=== PATIENT | male | born 1960 | race Caucasian/White ===

== ENCOUNTER 2017-04-07 19:42 | Inpatient (IN) | payer OTHER ==
[~2017-04-07] VITALS: Ht 177.8 cm; Wt 121.3 kg
[~2017-04-07 19:42] MED LIST: ALB2.5NEB INH; ALB2.5NEB NEB; ALBU83IN INH; ASPI1TAB PO; B-1210009 PO; BISO5TAB2 PO; BISO5TAB5 PO; BREO1INH INH; BUSP10TA PO; CIPR500T3 PO; CITA20TA4 PO; CYCL10TA PO; FOLI1TAB2 PO; GABA-282 PO; LASI20TA PO; LISI-538 PO; METF500T PO; METR500T10 PO; ONDA4TAB6 PO; OXAZ10CA PO; PERC5TAB6 PO; POTA10TA16 PO; PRIL40CA PO; SYMB80INH INH; THIA100T PO; Thiamine Hcl PO; ZEBE1TAB PO; ZOFR20TA PO; [UNRECOGNIZED DRUG - CODE] IM
[2017-04-07] MEDS ORDERED: PROPOFOL 1,000 MG/100 ML VIAL As Ordered ONE (21:08)
[2017-04-07] MEDS ORDERED: MIDAZOLAM INJ 2 MG/2 ML VIAL (J2250) As Ordered ONE (21:09)
[2017-04-07] MEDS ORDERED: BISACODYL 10 MG SUPP PR PRN (21:15)
[2017-04-07] MEDS ORDERED: ONDANSETRON 4MG/2ML VIAL (J2405) IV PRN (21:15)
[2017-04-07] MEDS ORDERED: PROPOFOL 1,000 MG in APPROPRIATE DILUENT 1 EA IV SCH (21:17)
[2017-04-07] MEDS: ALBUTEROL SULFATE 2.5 MG/0.5 ML INH NEB SOLN NEB PRN (21:39)
[2017-04-07] MEDS: MIDAZOLAM INJ 2 MG/2 ML VIAL (J2250) IV PRN ×4 (21:47→23:26)
[2017-04-07] MEDS: CHLORHEXIDINE GLUCONATE 0.12 % 15ML UDC (PERIDEX ORAL RINSE) MT SCH (21:47)
[2017-04-07] MEDS: PANTOPRAZOLE 40MG INJ (PROTONIX) (C9113) IV SCH (21:47)
[2017-04-07] MEDS: HEPARIN SOD (PORCINE) 5000 UNITS/ML VIAL SC SCH (21:48)
[2017-04-07 21:52] LABS: ABG BASE EXCESS 8.7 (-2.0-2.0); ABG HCO3 37.1 MEQ/L (22.0-26.0); ABG PARTIAL PRESSURE CO2 68.2 mmHg (35.0-45.0); ABG PARTIAL PRESSURE O2 73.3 mmHg (75.0-100.0); ABG STANDARD HCO3 32.4 MEQ/L (22.0-26.0); ABG TOTAL CO2 39.2 MEQ/L (22.0-29.0); ABG pH (ARTERIAL) 7.353 UNITS (7.350-7.450)
[2017-04-07 21:57] LABS: DIFF SLIDE NUMBER 163; MEAN CORPUSCULAR HEMOGLOBIN 33.7 pg (27.0-33.0); MEAN CORPUSCULAR VOLUME 88.9 fl (80.0-96.0); PLATELET COUNT, AUTOMATED 311 k/mm3 (150-450); RED CELL DISTRIBUTION WIDTH 13.4 % (11.5-14.5); WHITE BLOOD COUNT 15.6 K/mm3 (4.0-10.0)
[2017-04-07 21:58] LABS: INR 1.03
[2017-04-07 22:00] LABS: ANION GAP 10 MEQ/L (8-16); BLOOD UREA NITROGEN 3 MG/DL (7-18); CALCIUM LEVEL 7.2 MG/DL (8.5-10.1); CARBON DIOXIDE LEVEL 34 MEQ/L (21-32); CHLORIDE LEVEL 59 MEQ/L (98-107); GLOMERULAR FILTRATION RATE > 60.0 (>56); GLUCOSE, FASTING 78 MG/DL (70-105); POTASSIUM SERUM 3.2 MEQ/L (3.5-5.1)
[2017-04-07] MEDS ORDERED: MIDAZOLAM HCL 100 MG in D5W 80 ML IV SCH (22:00)
[2017-04-07] MEDS ORDERED: REFRIGERATOR IV KEYS XX PRN ×2 (22:00)
[2017-04-07 22:07] VITALS: O2SAT 90
[2017-04-07 22:09] LABS: SODIUM LEVEL 103 MEQ/L (136-145)
[2017-04-07] MEDS ORDERED: MULTIVITAMIN -ADULT INJECTION 10 ML, THIAMINE INJection 100 MG, FOLIC ACID 1 MG in NS 1... IV ONE (22:15)
[2017-04-07] MEDS: MIDAZOLAM HCL 100 MG in D5W 80 ML IV SCH (22:22)
[2017-04-07] MEDS: MAG SULF 1GM/100ML (MAG RUN) 1 GM in APPROPRIATE DILUENT 1 EA IV SCH ×2 (22:24→23:24)
[2017-04-07] MEDS ORDERED: GLUCOSE 4 GM CHEW TABLET PO PRN (22:30)
[2017-04-07] MEDS ORDERED: KCL 20MEQ in NS 1000ML 1,000 ML IV SCH (22:30)
[2017-04-07] MEDS ORDERED: GLUCAGON FOR INJ 1 MG VIAL (J1610) SC PRN (22:30)
[2017-04-07] MEDS ORDERED: POTASSIUM PHOSPHATE INJ 18 MMOL in D5W 250 ML IV ONE (22:30)
[2017-04-07] MEDS ORDERED: DEXTROSE 50% 50 ML SYRINGE IV PRN (22:30)
[2017-04-07 22:41] LABS: MEAN CORPUSCULAR HGB CONC 37.9 g/dl (32.0-36.5)
[2017-04-07 23:04] LABS: BANDS 1 % (< 11)
[2017-04-07 23:05] LABS: HYPERSEGMENTED POLYS 3+; TOXIC GRANULATION 1+
[2017-04-07] MEDS ORDERED: SING10TA32 PO (23:29)
[2017-04-07] MEDS ORDERED: FURO1TAB15 PO (23:29)
[2017-04-07] MEDS ORDERED: MAGN1TAB25 PO (23:29)
[2017-04-07] MEDS ORDERED: CART120C PO (23:29)
[2017-04-07] MEDS ORDERED: ZEBE1TAB PO (23:29)
[2017-04-07] MEDS ORDERED: CELE20TA PO (23:29)
[2017-04-07] MEDS ORDERED: AMAR1TAB5 PO (23:29)
[2017-04-07] MEDS ORDERED: OMEP40CA2 PO (23:29)
[2017-04-07] MEDS ORDERED: SODI1TAB6 PO (23:35)
[2017-04-07] MEDS ORDERED: BREO1INH INH (23:35)
[2017-04-07] MEDS ORDERED: POTA20EL PO (23:35)
[2017-04-07] MEDS ORDERED: METF1000 PO (23:35)
[2017-04-07] MEDS: IPRATROPIUM 0.5MG/ALBUTEROL 2.5MG INH SOL UD 3ML (DUONEB)(J7620) NEB SCH (23:40)
[2017-04-08] VITALS (15 sets, daily range): BP systolic 93–132; BP diastolic 45–60
[2017-04-08] MEDS: MIDAZOLAM INJ 2 MG/2 ML VIAL (J2250) IV PRN ×16 (00:10→21:58)
[2017-04-08] MEDS: OXAZEPAM 10 MG CAP PO SCH ×4 (00:31→17:14)
[2017-04-08] MEDS: MORPHINE 2 MG/ML 1ML SYRINGE IV PRN ×3 (00:38→07:34)
[2017-04-08] MEDS: MULTIVITAMIN -ADULT INJECTION 10 ML, THIAMINE INJection 100 MG, FOLIC ACID 1 MG in NS 1... IV SCH ×2 (02:04→21:06)
--- NOTE | 2017-04-08 02:26 | HPE ---
DATE OF ADMISSION: 04/07/2017 HISTORY OF PRESENT ILLNESS: I was contacted by [facility] for a direct transfer of this 56-year-old white male who has a past history of hyponatremia who was brought to the [facility] by ambulance for altered mental status after a fall. Per their intake, which I understand was taken from a neighbor and possibly his mother, he had not been compliant with his medications recently and he had been drinking heavily. He was described as having decreased level of consciousness. Apparently, according to the triage notes, his mother had seen him fall from a standing position. When he landed his neck was at an angle on the back of a chair and he had altered mental status and therefore she contacted emergency medical services (EMS). His speech was incoherent and he was combative at times. He could state his name upon arrival, would answer "no" if asked if he knew where he was. Because of his combativeness and mental status, he was eventually intubated. With intubation, they noted that he had clear secretions from his nose and mouth, but did not comment on any aspiration nor was there any comment on any type of emesis. His workup at that time of his presentation had shown several abnormalities the most striking of which was the sodium of 104 and a chloride of 59. Other abnormalities included a phosphorus of 2.0 and a magnesium of 1.0. He had initially been hypertensive, but was hypotensive following intubation at the time that they contacted me with a systolic in the 90s. He was on a Versed drip at 2 mg/h and a fentanyl drip at 100 mcg/h. I recommended discontinuance of the fentanyl drip and using as needed Versed and morphine if necessary. Propofol could not be considered as that requires anesthesia to administer it in that facility. I also had recommended that if a vasopressor was needed that Neeraj-Synephrine would be appropriate as he did not have central access. In addition hemodynamic stability, I also asked for an arterial blood gas prior to transfer. Upon arrival, he was intubated and initially mildly agitated when transferring to the bed, but this resolved with one dosage of 2 mg of Versed. The only other history that is available is that he had a similar admission at [facility] 03/19/2017, though his sodium at that time was 129. He had another admission to for hyponatremia 03/24/2016, and had an admission to [facility] 04/05/2016, for acute hyponatremia when interestingly his sodium was also 104 as it is today. He also had an admission in August of 2015 again for hyponatremia and encephalopathy with a presenting sodium of 107. He also was intubated during that admission. PAST MEDICAL HISTORY: 1. Hyponatremia. 2. Alcoholic cirrhosis with recurrent ascites. 3. Chronic obstructive pulmonary disease (COPD) per chart, do not know his specific lung mechanics. 4. Diabetes mellitus. 5. Hypertension. 6. Gastroesophageal reflux disease (GERD). 7. Morbid obesity. 8. Chronic heavy alcohol abuse. 9. History of tobacco usage. 10. Chronic hypomagnesemia. MEDICATIONS ON ADMISSION: Unknown as reports are he has not been compliant with medications. DISCHARGE MEDICATIONS: From [place] on 03/19/2017 were: - Amaryl 2 mg by mouth daily - bisoprolol 10 mg by mouth daily - Breo one puff daily - Cartia XT daily - Celexa 20 mg by mouth daily - Flexeril 10 mg by mouth twice a day - folic acid 1 mg by mouth daily - gabapentin 300 mg by mouth three times a day - lisinopril 10 mg by mouth daily - loratadine 10 mg by mouth daily - magnesium oxide 400 mg by mouth three times a day - montelukast 10 mg by mouth daily - Prilosec 40 mg by mouth daily - potassium chloride 20 mEq by mouth twice a day - Lasix 40 mg by mouth daily - BuSpar 10 mg by mouth twice a day - metformin 1000 mg by mouth twice a day - Bydureon once a week FAMILY HISTORY: Not pertinent to this admission. SOCIAL HISTORY: Unobtainable secondary to intubation. REVIEW OF SYSTEMS: Unobtainable secondary to intubation. What is known is included in the history of present illness (HPI). PHYSICAL EXAMINATION: GENERAL: Mr. Mir is lying in bed synchronous with the ventilator. He is sedated. VITAL SIGNS: Pulse 74, respiratory rate 16, SpO2 90% on an FiO2 of 0.4, blood pressure 95/45 with a mean arterial pressure (MAP) of 68, temperature 97.9. HEENT: Anicteric. Pupils 3 mm and reactive. Nares: Patent bilaterally, moist mucosa. Oropharynx: Endotracheal (ET) tube and OG tube in place, moist mucosa. NECK: Supple, without thyromegaly or masses. Trachea is midline. Unable to assess jugular venous distention (JVD) secondary to body habitus. LYMPHATICS: Without cervical or supraclavicular lymphadenopathy. CHEST: Normal shape. LUNGS: Symmetric excursion, good air entry, no wheeze, rhonchi or crackle on tidal excursion. Normal inspiratory to expiratory (I to E). No accessory muscle usage or retractions. CARDIOVASCULAR: Regular rate and rhythm with a normal S1, S2. No murmur, rub or gallop appreciated. ABDOMEN: Diminished, but present bowel sounds, soft, nondistended, no hepatosplenomegaly or masses appreciated in suboptimal examination secondary to body habitus. EXTREMITIES: Warm and well perfused, without clubbing or cyanosis, 3+ pitting pedal edema and 1-2+ pretibial edema bilaterally, palpable dorsalis pedis pulses bilaterally. LABORATORY DATA: Repeat labs obtained here upon arrival show a hemoglobin of 14.8, hematocrit 39, platelet count 311,000, white blood cell count 15,600, with a differential of 88% neutrophils, 1% bands, and 7% lymphocytes. Chemistry showed a sodium of 103, potassium 3.2, chloride 59, CO2 34, anion gap 10, BUN 3, creatinine 0.3, glucose 78, calcium 7.2, ionized calcium 3.7. INR 1.03. Urine osmolality 271. Serum osmolality is pending. Blood gas on assist control PRVC with a rate 16, tidal volume of 400, and FiO2 of 0.35 was 7.35/68/73 with a measured saturation of 93%. I reviewed his chest x-ray, which showed an enlarged cardiac silhouette and normal pulmonary vascular shadows. No acute infiltrates. Endotracheal tube in good position. Additional studies available from [facility] include a CRP of 49, troponin I of 0.01, BNP of 813, lactic acid of 2.6, lipase 19, acetaminophen less than 15 , salicylate less than 0.03, sedimentation rate 10, TSH 0.47, negative urine toxicology screen. I did not see an EtOH level on my purview of the labs. Report from CT of the brain without IV contrast did not show any acute abnormality except for opacification of the ethmoid and right maxillary sinuses. CT of the cervical spine showed no fracture or listhesis. I reviewed his chest CT scan, which did not show any acute pathology. It did have bibasilar dependent atelectasis. Endotracheal tube was in good position. I reviewed a repeat chest x-ray taken here to ensure the endotracheal tube was in good position after transportation. That showed enlarged cardiac silhouette. No acute infiltrates. Endotracheal tube was in good position. IMPRESSION: 1. Severe hyponatremia likely secondary to chronic alcoholism. 2. Mechanical ventilation secondary to decreased mental status, agitation. 3. Hypomagnesemia. 4. Hypokalemia. 5. Ethyl alcohol (EtOH) abuse, active at the time of admission. 6. History of alcoholic cirrhosis with recurrent ascites. 7. Chronic obstructive pulmonary disease (COPD) per chart. I do not know his spirometric values. 8. Possible obstructive sleep apnea (MARCOS) based on body habitus. 9. History of tobacco usage. RECOMMENDATIONS: 1. We will aim to improve his sodium level by at most 0.5 mEq/h. Therefore, we will follow NaK every 4 hours and adjust his intravenous (IV) fluids appropriately. 2. To slowly increase his sodium levels, he will be given IV normal saline starting at a rate of 100 mL/h and will adjust according to NaK to ensure appropriate correction. 3. We will replace his magnesium and phosphorus. 4. We will start him on Serax because of his alcoholism. 5. A banana bag because of his alcohol abuse. 6. Will check a serum ammonia level given the description of his activities prior to intubation, which may have been reflective of an encephalopathy of which hepatic causes would be a possible etiology. PROGNOSIS: Guarded. Critical care time: 3 hours not including procedure time. RINA
[2017-04-08 02:44] LABS: POTASSIUM SERUM 3.2 MEQ/L (3.5-5.1)
[2017-04-08] MEDS ORDERED: KCL 10MEQ IN STERILE WATER 100ML As Ordered ONE (03:06)
[2017-04-08] MEDS: IPRATROPIUM 0.5MG/ALBUTEROL 2.5MG INH SOL UD 3ML (DUONEB)(J7620) NEB SCH ×6 (03:25→23:53)
[2017-04-08] MEDS: KCL 10MEQ IN 100ML SWI (KRUN) 10 MEQ in APPROPRIATE DILUENT 1 EA IV SCH ×14 (04:12→12:32)
[2017-04-08] MEDS: HEPARIN SOD (PORCINE) 5000 UNITS/ML VIAL SC SCH ×3 (05:30→21:07)
[2017-04-08] MEDS: HumaLOG INSULIN (NovoLOG) PER UNIT SC SCH ×4 (05:37→17:30)
[2017-04-08 06:54] LABS: ALBUMIN 2.5 GM/DL (3.2-5.2); ALBUMIN/GLOBULIN RATIO 0.74 (1.00-1.93); ALKALINE PHOSPHATASE 98 U/L (45-117); ALT/SGPT 38 U/L (12-78); ANION GAP 11 MEQ/L (8-16); AST/SGOT 61 U/L (15-37); BILIRUBIN,TOTAL 0.8 MG/DL (0.2-1.0); BLOOD UREA NITROGEN 3 MG/DL (7-18); CARBON DIOXIDE LEVEL 33 MEQ/L (21-32); CHLORIDE LEVEL 62 MEQ/L (98-107); CREATININE FOR GFR 0.27 MG/DL (0.70-1.30); GLOMERULAR FILTRATION RATE > 60.0 (>56); GLUCOSE, FASTING 75 MG/DL (70-105); MAGNESIUM LEVEL 1.4 MG/DL (1.8-2.4); POTASSIUM SERUM 3.1 MEQ/L (3.5-5.1); SODIUM LEVEL 106 MEQ/L (136-145); TOTAL PROTEIN 5.9 GM/DL (6.4-8.2)
[2017-04-08 07:24] LABS: DIFF SLIDE NUMBER 71; MEAN CORPUSCULAR HEMOGLOBIN 34.3 pg (27.0-33.0); MEAN CORPUSCULAR VOLUME 89.8 fl (80.0-96.0); PLATELET COUNT, AUTOMATED 272 k/mm3 (150-450); WHITE BLOOD COUNT 9.4 K/mm3 (4.0-10.0)
[2017-04-08 08:06] LABS: MEAN CORPUSCULAR HGB CONC 37.4 g/dl (32.0-36.5)
[2017-04-08 08:09] LABS: HYPERSEGMENTED POLYS 3+
--- NOTE | 2017-04-08 08:20 | REP ---
Portable chest, 04/07/2017, 10:30 p.m., single AP view, patient sitting: Comparison is 09/26/2015. There is an endotracheal tube with the term the tip terminating satisfactorily just above the level of the aortic arch. There is a nasogastric tube terminates satisfactorily abdominal left upper quadrant. The right lung is clear. The left costophrenic angle is effaced. This could be artifact from portable positioning and represent a left pleural effusion. Cardiac size is enlarged. Signed by Eric Manning MD 04/08/2017 08:12 A
--- NOTE | 2017-04-08 08:26 | REP ---
Portable chest, the patient semi upright, 04/08/2017, 03:33 a.m.: Comparisons are 04/07 201709/26/2015. The left hemidiaphragm is obscured. This is nonspecific and could represent a left lower lobe infiltrate or pleural effusion or could be artifact from portable positioning. The remainder of the left lung is clear. The right lung is clear. Cardiac size is enlarged, unchanged. There is an endotracheal tube terminating satisfactorily above the level of the aortic arch. There is a nasogastric tube terminating satisfactorily abdominal left upper quadrant. Signed by Eric Manning MD 04/08/2017 08:18 A
[2017-04-08 08:31] LABS: CHOLESTEROL LEVEL 152 MG/DL (< 200); PHOSPHORUS LEVEL 2.1 MG/DL (2.5-4.9); TRIGLYCERIDES LEVEL 85 MG/DL (<150)
[2017-04-08] MEDS: CHLORHEXIDINE GLUCONATE 0.12 % 15ML UDC (PERIDEX ORAL RINSE) MT SCH ×2 (08:47→21:06)
[2017-04-08] MEDS: MAG SULF 1GM/100ML (MAG RUN) 1 GM in APPROPRIATE DILUENT 1 EA IV SCH ×2 (08:47→10:04)
[2017-04-08 09:29] LABS: ABG BASE EXCESS 8.2 (-2.0-2.0); ABG HCO3 35.5 MEQ/L (22.0-26.0); ABG PARTIAL PRESSURE O2 64.8 mmHg (75.0-100.0); ABG STANDARD HCO3 31.9 MEQ/L (22.0-26.0); ABG TOTAL CO2 37.4 MEQ/L (22.0-29.0); ABG pH (ARTERIAL) 7.383 UNITS (7.350-7.450)
[2017-04-08 10:35] LABS: POTASSIUM SERUM 3.1 MEQ/L (3.5-5.1)
[2017-04-08] MEDS ORDERED: POTASSIUM PHOSPHATE INJ 18 MMOL in D5W 250 ML IV ONE (13:00)
--- NOTE | 2017-04-08 14:22 | CCN ---
CRITICAL CARE NOTE: 04/08/2017 Mr. Mir remains critically ill with severe hyponatremia and the requirement for mechanical ventilation secondary to encephalopathy. He has had moments of agitation overnight, but has been relatively well controlled on versed drip and as needed versed and morphine. He has remained off vasopressors since transfer from [facility]. His sodium is correcting at approximately the rate of 0.5 mEq per hour. He has minimal secretions, but at times has upon turning his head, oral and nasal secretions that were clear and sticky. OBJECTIVE: GENERAL: Mr. Mir is sedated, intubated and synchronous with the ventilator. VITAL SIGNS: Temperature 98.7 with a T-max of 99.2, pulse 90, respiratory rate 16, blood pressure 126/57 with an mean arterial pressure (MAP) of 80, SpO2 89% on an FiO2 of 0.4. HEENT: Pupils 4 to 5 mm and reactive, anicteric. Nares: Right NG tube in place. Oropharynx: ET tube in place, moist mucosa. NECK: Supple, without thyromegaly, masses, trachea is midline. Lymphs: Without cervical or supraclavicular lymphadenopathy. CHEST: Symmetric excursion, fair air entry, coarse breath sounds bilaterally with an expiratory squeak on the right. Mildly prolonged expiratory phase. No significant crackles or rhonchi. No accessory muscle usage or retractions (briefly last evening he used abdominal muscles on exhalation. CARDIOVASCULAR: Regular rate and rhythm with a normal S1, S2, no murmur, rub or gallop appreciated. ABDOMEN: Positive bowel sounds. Soft, nondistended. No hepatosplenomegaly or masses appreciated and difficult examination secondary to body habitus. EXTREMITIES: Without clubbing or cyanosis, palpable pedal pulses bilaterally, 3 to 4+ pitting pedal edema bilaterally and 2+ pretibial edema bilaterally. LABORATORY DATA: CBC showed a hemoglobin of 13.6, hematocrit 35.5, platelet count of 272,000. White blood cell count 9400 with a differential 91% neutrophils, 3% lymphocytes, 5% monocytes. Chemistries from this morning showed a sodium of 106, potassium 3.1, chloride 62 , bicarbonate 33, anion gap 11, BUN 3, creatinine 0.3, glucose 75, calcium 7.0, phosphorous 2.1, magnesium 1.4, and a total bilirubin 0.8, AST 61, ALT 38, alkaline phosphatase 98, LDH 277, CK 617, total protein 5.9, albumin 2.5. Troponin I 0.1 initially with CK of 821 and a CK-MB relative index of 2.37. Subsequent values showed a troponin I of 0.08 with a CK of 457 and a relative CK-MB index of 2.4. Arterial blood gas on packed red blood cells was a tidal volume of 440, rate of 14, positive end-expiratory pressure (PEEP) of 7, FiO2 2.4, was 7.38/61/65 with a measured saturation of 92% and a base excess of 8.2. Today's Intake and output (I and O) are not fully recorded. What is accurate is his urine output, which is 1450 and gastric output of 500, giving his urine output of 0.45 mL/kg/hour. I reviewed his chest x-ray as well as the report from earlier today. That x-ray showed probably enlarged cardiac silhouette. ET tube and NG tube in satisfactory condition. No acute infiltrates. The left hemidiaphragm is obscured. IMPRESSION: 1. Severe hyponatremia, felt secondary to chronic alcoholism. 2. Mechanical ventilation secondary to encephalopathy. 3. Hypomagnesemia. 4. Hypokalemia. 5. ETOH abuse, active at the time of admission. 6. Chronic obstructive pulmonary disease (COPD) per chart. 7. Possible obstructive sleep apnea based on body habitus. 8. History of alcoholic cirrhosis with recurrent ascites. 9. Deep venous thrombosis (DVT) and stress ulcer prophylaxis in place. 10. Nutrition: Currently nothing by mouth (npo). RECOMMENDATIONS: 1. Continue to slowly correct his sodium at a maximum rate of 0.5 mEq per hour. 2. We will continue to replace electrolytes as needed. 3. Given his respiratory findings, will add nebulized budesonide. 4. Will continue bronchodilators as written (DuoNeb every 4 hours and albuterol every 2 hours as needed). 5. Hopefully, will continue to do well. If his mean arterial pressure remains reasonable, would consider changing him to propofol later today. This would allow rapid assessment of mental status for possible extubation tomorrow. 6. Another consideration tomorrow would be adding Precedex to see if that would help with his mental status and would allow extubation. Critical care time: 45 minutes, not including procedure time. MTDD
[2017-04-08 15:24] LABS: POTASSIUM SERUM 4.6 MEQ/L (3.5-5.1)
[2017-04-08 18:29] LABS: POTASSIUM SERUM 3.6 MEQ/L (3.5-5.1)
[2017-04-08] MEDS ORDERED: FORMOTEROL FUMARATE 20 MCG/2 ML INHALATION SOLUTION (PERFOROMIST) INH SCH (20:00)
[2017-04-08] MEDS: BUDESONIDE 0.5 MG/2 ML INHALATION SUSPENSION INH SCH (20:51)
[2017-04-08] MEDS: PANTOPRAZOLE 40MG INJ (PROTONIX) (C9113) IV SCH (21:06)
[2017-04-08] MEDS: MIDAZOLAM HCL 100 MG in D5W 80 ML IV SCH (22:13)
[2017-04-08 22:30] LABS: POTASSIUM SERUM 3.5 MEQ/L (3.5-5.1)
[2017-04-08] MEDS ORDERED: D5W 1000 ML IV ONE (23:15)
[2017-04-08] MEDS ORDERED: DESMOPRESSIN 4 MCG/ML INJ VIAL/AMP (J2597) SQ ONE (23:15)
[2017-04-08] MEDS ORDERED: D5W 1,000 ML IV SCH (23:15)
[2017-04-09] VITALS (20 sets, daily range): BP systolic 97–169; BP diastolic 51–91
[2017-04-09] MEDS ORDERED: KCL 40MEQ in NS 1000ML 1,000 ML IV SCH
[2017-04-09] MEDS: HumaLOG INSULIN (NovoLOG) PER UNIT SC SCH ×5 (00:03→23:53)
[2017-04-09] MEDS: MIDAZOLAM INJ 2 MG/2 ML VIAL (J2250) IV PRN ×5 (00:09→08:18)
[2017-04-09] MEDS ORDERED: D5W 1000 ML IV ONE (00:45)
[2017-04-09 02:35] LABS: POTASSIUM SERUM 3.3 MEQ/L (3.5-5.1)
[2017-04-09] MEDS: IPRATROPIUM 0.5MG/ALBUTEROL 2.5MG INH SOL UD 3ML (DUONEB)(J7620) NEB SCH ×6 (03:09→23:04)
[2017-04-09] MEDS ORDERED: D5W 1,000 ML IV ONE (03:15)
[2017-04-09] MEDS ORDERED: POTASSIUM CHLORIDE 10% LIQ 20 MEQ/15 ML UDC PO ONE (03:15)
[2017-04-09] MEDS: KCL 10MEQ IN 100ML SWI (KRUN) 10 MEQ in APPROPRIATE DILUENT 1 EA IV SCH ×4 (03:27→04:32)
[2017-04-09] MEDS: FOLIC ACID IV SCH ×2 (04:32→15:07)
[2017-04-09] MEDS: MULTIVITAMIN ADULT IV SCH ×2 (04:32→15:07)
[2017-04-09] MEDS: [UNRECOGNIZED DRUG - OTHER] IV SCH ×2 (04:32→15:07)
[2017-04-09] MEDS: THIAMINE IV SCH ×2 (04:32→15:07)
[2017-04-09] MEDS: HEPARIN SOD (PORCINE) 5000 UNITS/ML VIAL SC SCH ×4 (06:00→21:58)
[2017-04-09] MEDS: OXAZEPAM 10 MG CAP PO SCH ×5 (06:12→23:53)
[2017-04-09 06:24] LABS: BASO % 0.1 % (0.0-1.0); EOS % 0.6 % (0.0-3.0); LARGE UNSTAINED CELL # 0.1 K/mm3 (0.0-0.4); LARGE UNSTAINED CELL % 0.9 % (0.0-4.0); LYMPH # 0.6 K/mm3 (1.5-4.5); LYMPH % 7.2 % (24.0-44.0); MEAN CORPUSCULAR HEMOGLOBIN 34.7 pg (27.0-33.0); MEAN CORPUSCULAR VOLUME 93.3 fl (80.0-96.0); MONO # 0.3 K/mm3 (0.0-0.8); MONO % 4.4 % (0.0-5.0); NEUTROPHILS # 6.8 K/mm3 (1.8-7.7); NEUTROPHILS % 86.8 % (36.0-66.0); PLATELET COUNT, AUTOMATED 261 k/mm3 (150-450); WHITE BLOOD COUNT 7.8 K/mm3 (4.0-10.0)
[2017-04-09 06:28] LABS: MEAN CORPUSCULAR HGB CONC 36.6 g/dl (32.0-36.5)
[2017-04-09 06:41] LABS: ALBUMIN 2.3 GM/DL (3.2-5.2); ALBUMIN/GLOBULIN RATIO 0.68 (1.00-1.93); ALKALINE PHOSPHATASE 89 U/L (45-117); ALT/SGPT 31 U/L (12-78); ANION GAP 6 MEQ/L (8-16); AST/SGOT 31 U/L (15-37); BILIRUBIN,TOTAL 0.6 MG/DL (0.2-1.0); BLOOD UREA NITROGEN 2 MG/DL (7-18); CALCIUM LEVEL 7.9 MG/DL (8.5-10.1); CARBON DIOXIDE LEVEL 38 MEQ/L (21-32); CHLORIDE LEVEL 74 MEQ/L (98-107); CHOLESTEROL LEVEL 161 MG/DL (< 200); GLOMERULAR FILTRATION RATE > 60.0 (>56); GLUCOSE, FASTING 167 MG/DL (70-105); MAGNESIUM LEVEL 1.4 MG/DL (1.8-2.4); PHOSPHORUS LEVEL 1.8 MG/DL (2.5-4.9); POTASSIUM SERUM 3.9 MEQ/L (3.5-5.1); SODIUM LEVEL 118 MEQ/L (136-145); TOTAL PROTEIN 5.7 GM/DL (6.4-8.2); TRIGLYCERIDES LEVEL 85 MG/DL (<150)
[2017-04-09] MEDS ORDERED: MAG SULF 1GM/100ML (MAG RUN) 1 GM in APPROPRIATE DILUENT 1 EA IV ONE ×2 (07:00→17:30)
[2017-04-09] MEDS: BUDESONIDE 0.5 MG/2 ML INHALATION SUSPENSION INH SCH ×2 (07:14→19:29)
--- NOTE | 2017-04-09 07:42 | REP ---
Clinical: Respiratory distress. Comparison: 04/08/2017. Findings: Endotracheal tube approximately 4 cm above the jeremy. Nasogastric tube courses below left hemidiaphragm. Mediastinum and cardiac silhouette are stable and grossly within normal limits for portable technique. Perihilar, right middle lobe, and left lower lobe/retrocardiac consolidations are again suggested. Small left effusion cannot be excluded. No pneumothorax. Skeletal structures intact. Impression: Perihilar and predominantly left lower lobe opacities similar to prior examination. Small left effusion cannot be excluded. Signed by Pedro Orozco MD 04/09/2017 07:34 A
[2017-04-09] MEDS ORDERED: POTASSIUM PHOSPHATE INJ 30 MMOL in D5W 500 ML IV ONE (08:00)
[2017-04-09] MEDS: CHLORHEXIDINE GLUCONATE 0.12 % 15ML UDC (PERIDEX ORAL RINSE) MT SCH (08:18)
[2017-04-09 10:08] LABS: CORTISOL BASELINE 12.6 UG/DL (4.3-22.4)
[2017-04-09 10:53] LABS: POTASSIUM SERUM 3.8 MEQ/L (3.5-5.1)
[2017-04-09 11:51] LABS: ABG BASE EXCESS 11.9 (-2.0-2.0); ABG HCO3 38.6 MEQ/L (22.0-26.0); ABG PARTIAL PRESSURE CO2 58.5 mmHg (35.0-45.0); ABG STANDARD HCO3 35.7 MEQ/L (22.0-26.0); ABG TOTAL CO2 40.4 MEQ/L (22.0-29.0); ABG pH (ARTERIAL) 7.437 UNITS (7.350-7.450)
--- NOTE | 2017-04-09 14:07 | CCN ---
DATE: 04/09/2017 NOTE: Mr. Mir remains critically ill with acute respiratory failure secondary to encephalopathy and severe hyponatremia. He had been maintained on normal saline and was correcting at an appropriate rate until early yesterday evening when his sodium suddenly increased and he started having significant urine output. The changes were consistent with syndrome of inappropriate secretion of antidiuretic hormone (SIADH). Nephrology was consulted, who took over management of his sodium difficulty. Since his initial jump in sodium to 118 from his level of 109, he has not had any further increases. His mental status has improved and he was following commands on his weaning trial today. Overnight, he did have a nose bleed (we do not know history of his nasogastric placement and whether there was any trauma). That resolved without any intervention. He is currently awake and alert, indicating no pain. He indicates that he is getting enough air. He is anxious for extubation. OBJECTIVE: VITAL SIGNS: Temperature 99.1 with a maximum temperature (t-max) of 99.4, pulse 101, respiratory rate 18, blood pressure 154/72 with a mean arterial pressure of 99, SpO2 94% on an FiO2 of 0.4. HEENT: Anicteric. Pupils are 3 mm and reactive. NECK: Oropharynx: ET tube in place. Naris: Nasogastric tube in place in right nostril. NECK: Supple. Without thyromegaly or masses. Trachea is midline. LYMPHATICS: Without cervical or supraclavicular lymphadenopathy. CHEST: Normal shape. LUNGS: Symmetric excursion, good air entry. No wheeze, rhonchi or crackles on tidal excursion. Mildly prolonged but improved expiratory phase. No accessory muscle use or retractions. CARDIOVASCULAR: Tachycardic. Regular rhythm with a normal S1, S2. No murmur, rub or gallop appreciated. ABDOMEN: Positive bowel sounds. Soft, nondistended, nontender. He indicates no discomfort. EXTREMITIES: Warm and well perfused. 2+ pedal edema bilaterally with 1+ pretibial edema bilaterally. Palpable pedal pulses bilaterally. LABORATORY DATA: This morning electrolytes show sodium 118, potassium 3.9, chloride 74, bicarbonate 38, anion gap 6, BUN 2, creatinine 0.4, glucose 167, calcium 7.9, phosphorous 1.8, magnesium 1.4, total bilirubin 0.6, AST 31, ALT 31 , alkaline phosphatase 89, LDH 174, CK 251, total protein 5.7, albumin 2.3. Yesterday, input and output unfortunately cannot thoroughly be assessed as no input was done from midnight until 7:00 a.m. His output is accurate, I believe, and it shows 5375 mL. I reviewed his chest x-ray, as well as the report from earlier today. The x-ray showed normal-appearing cardiac silhouette, pulmonary vascular shadows. There is scattered areas of atelectasis, loss of left hemidiaphragm. No consolidative regions. No significant change compared to chest x-ray from yesterday. ET tube is in good position. IMPRESSION: 1. Mechanical ventilation secondary to encephalopathy. 2. 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 3. Hypomagnesemia. 4. Hypokalemia. 5. ETOH abuse, active at the time of admission. 6. Chronic obstructive pulmonary disease (COPD) per chart. 7. Possible obstructive sleep apnea. 8. History of alcoholic cirrhosis with recurrent ascites. 9. Deep vein thrombosis (DVT) and stress ulcer prophylaxis in place. 10. Nutrition, currently nothing by mouth. RECOMMENDATIONS: 1. I appreciate nephrology's input and management of his severe hyponatremia. 2. As he is following commands and appears oriented, we will proceed with evaluation for possible extubation. 3. If he is not extubatable, we will need to coordinate some type of nasogastric tube feedings, taking into consideration the amount of sodium that would be included. ADDENDUM Mr. Mir underwent a pressure support trial with a PEEP of 5, pressure support of 5 on an FiO2 of 0.4. He did very well on that trial with rapid shallow breathing index of 44. As he is a CO2 retainer, an arterial blood gas was obtained, which was 7.44/59/79 with a measured saturation of 96% and a base excess of 11.9. He was therefore extubated. The goal will be an SpO2 of 88 to 92%. It is thought that he possibly had obstructive sleep apnea, so he will need to be observed closely in the post extubation time period and may require transient intervention with either CPAP or noninvasive mechanical ventilation. Critical care time: 35 minutes, not including procedures. [facility]
[2017-04-09] MEDS: ALBUTEROL SULFATE 2.5 MG/0.5 ML INH NEB SOLN NEB PRN (14:17)
[2017-04-09 15:24] LABS: ANION GAP 8 MEQ/L (8-16); BLOOD UREA NITROGEN 2 MG/DL (7-18); CALCIUM LEVEL 8.2 MG/DL (8.5-10.1); CARBON DIOXIDE LEVEL 37 MEQ/L (21-32); CHLORIDE LEVEL 73 MEQ/L (98-107); CREATININE FOR GFR 0.35 MG/DL (0.70-1.30); GLOMERULAR FILTRATION RATE > 60.0 (>56); GLUCOSE, FASTING 122 MG/DL (70-105); SODIUM LEVEL 118 MEQ/L (136-145)
[2017-04-09 16:30] LABS: MAGNESIUM LEVEL 1.6 MG/DL (1.8-2.4); PHOSPHORUS LEVEL 3.1 MG/DL (2.5-4.9)
[2017-04-09] MEDS: LABETALOL HCL 100 MG/20 ML VIAL IV SCH ×2 (18:25→23:53)
[2017-04-09 18:43] LABS: MAGNESIUM LEVEL 1.6 MG/DL (1.8-2.4); PHOSPHORUS LEVEL 3.2 MG/DL (2.5-4.9)
[2017-04-09 18:43] LABS: ANION GAP 10 MEQ/L (8-16); BLOOD UREA NITROGEN 1 MG/DL (7-18); CALCIUM LEVEL 8.2 MG/DL (8.5-10.1); CARBON DIOXIDE LEVEL 37 MEQ/L (21-32); CHLORIDE LEVEL 73 MEQ/L (98-107); CREATININE FOR GFR 0.36 MG/DL (0.70-1.30); GLOMERULAR FILTRATION RATE > 60.0 (>56); GLUCOSE, FASTING 116 MG/DL (70-105); POTASSIUM SERUM 3.9 MEQ/L (3.5-5.1); SODIUM LEVEL 120 MEQ/L (136-145)
--- NOTE | 2017-04-09 19:17 | CR ---
DATE OF CONSULTATION: 04/09/2017 REQUESTING PHYSICIAN: Dr. Ordoñez CONSULTING PHYSICIAN: Dr. Jean REASON FOR CONSULTATION: Management of severe hyponatremia and multiple electrolyte abnormalities. CHIEF COMPLAINT: The patient was transferred from [facility] for critical care management of this intubated patient with severe hyponatremia. Note, history was obtained from the medical team and from the patient's chart. The patient is unable to provide any history because he is intubated at this time. HISTORY OF THE PRESENT ILLNESS: Mr. Juvenal Mir is a 57-year-old male with a past medical history of hyponatremia in the past as well. He has a history of chronic alcohol abuse. He was initially admitted to [facility] with decreased level of consciousness, confusion, multiple falls and incoherent speech. As reported in the chart, the patient was drinking heavily before going to [facility] Emergency Room (ER). The patient was intubated over there. He was found to have a sodium of 104 and chloride of 59 on arrival in the emergency room. The patient was transferred to [facility] for a higher level of care. When the patient arrived at [facility], he was intubated and sedated with Versed. His initial labs showed that he had a sodium of 103. The patient was started on IV normal saline. His sodium on the morning of 04/08/2017 was 106. After that, the patient started making almost 350 mL of urine an hour. He rapidly corrected to sodium of 118 within 12 hours. Nephrology service was contacted at that time for further management of severe hyponatremia. I discussed the patient over the phone with the critical care attending last night. The patient's IV normal saline was stopped. He was given a dose of DDAVP 3 mcg subcutaneously last night after he had already corrected about 12 mEq in 12 hours. The patient was also given multiple IV D5W boluses to reverse the overcorrection. I was subsequently called for each lab value every 4 hours. His sodium has been stable at 118 since last night. His urine osmolality increased from 45 to 272 this morning after use of DDAVP. The patient continues to be on IV D5W at this time. His urine output also dropped this morning to 75 mL an hour. The patient is still intubated and sedated at this time. PAST MEDICAL HISTORY: History of hyponatremia in the past as well. History of alcoholic cirrhosis with recurrent ascites. Chronic obstructive pulmonary disease (COPD). Diabetes mellitus type 2. Hypertension. Gastroesophageal reflux disease. Morbid obesity. Chronic hypomagnesemia. PAST SURGICAL HISTORY: Unknown past surgical history. ALLERGIES: No known drug allergies. FAMILY HISTORY: Not available at this time in this intubated patient. SOCIAL HISTORY: I was unable to obtain the social history because the patient is intubated, but as reported in the documentation, the patient has a history of alcohol abuse in the past. REVIEW OF SYSTEMS: I was unable to do any reliable review of systems in this patient who is intubated and sedated. MEDICATIONS ON TRANSFER FROM [facility]: - Amaryl 2 mg by mouth daily - bisoprolol 10 mg by mouth daily - Breo Ellipta one puff daily - Cartia XT daily - Celexa 20 mg by mouth daily - Flexeril 10 mg by mouth twice a day - folic acid 1 mg by mouth daily - gabapentin 300 mg by mouth three times a day - lisinopril 10 mg by mouth daily - loratadine 10 mg by mouth daily - magnesium oxide 400 mg by mouth three times a day - montelukast 10 mg by mouth daily - Prilosec 40 mg by mouth daily - potassium chloride 20 mEq by mouth twice a day - Lasix 40 mg by mouth daily - BuSpar 10 mg by mouth twice a day - metformin 1 gram by mouth twice a day - Bydureon once a week PHYSICAL EXAMINATION: GENERAL: The patient is intubatede, sedated, otherwise arousable, on the vent at this time. VITAL SIGNS: Temperature is 97.7 degrees Fahrenheit, blood pressure is 166/91, pulse is 88, respiratory rate of 20, saturating 94% on the vent, 40% FiO2. HEAD AND NECK EXAM: Pupils equally round and reactive to light. The patient is arousable on painful stimuli. He is intubated. He has an nasogastric tube which is attached to suctioning at this time. Neck is supple. There is no jugular venous distention (JVD). CARDIOVASCULAR: S1, S2. Regular rate. No murmur, rub or gallop. RESPIRATORY: Chest is clear to auscultation bilaterally. He has transmitted breath sounds because of the vent; otherwise there are no rales or rhonchi. ABDOMEN: Soft, obese. Positive bowel sounds. Nontender, no ascites, no organomegaly. EXTREMITIES: No clubbing or cyanosis. Pulses are 2+. There is no edema. CENTRAL NERVOUS SYSTEM: The patient moves extremities on painful stimuli, otherwise does not follow commands. He is sedated at this time. SKIN: No rashes or ulcers. LYMPH NODES: No significant cervical, axillary or inguinal lymphadenopathy. LAB REVIEW: CBC showed a WBC of 7.8, hemoglobin 13.3, platelets are 261. INR is 1. Urine osmolality last night was 45. It is 272 today. ABG done this morning showed a pH of 7.4, pCO2 of 58, PO2 of 79, bicarbonate is 38, oxygen saturation is 95%. BMP done this morning showed a sodium of 118, potassium 3.9, chloride 74, bicarbonate 38, BUN is 2, creatinine is 0.4, glucose 167, osmolality 243, calcium is 7.9, phosphorus 1.8, magnesium 1.4, albumin 2.3. IMAGING: Chest x-ray done today in the morning showed perihilar and predominantly left lower lobe opacities, small left effusion. CURRENT INPATIENT MEDICATIONS: Patient's current medications include: - banana bag, which is made with D5W IV at 100 mL an hour - magnesium sulfate 1 gram IV times one dose this morning - potassium phosphate 30 mmol IV times one dose was ordered this morning - DDAVP 3 mcg subcutaneously, one dose was given last night - heparin subcutaneously - patient has been started on labetalol 10 mg IV every 6 hours with holding parameters - He is on Versed for sedation. - oxazepam 10 mg by mouth every 6 hours for alcohol - Protonix 40 mg IV every 24 hours - potassium chloride 40 mEq by mouth - one dose was given family preservation caseworker ASSESSMENT: A 57-year-old male with past medical history of hypertension, alcohol abuse, diabetes mellitus type 2, history of hyponatremia in the past, admitted at this time with vent dependent respiratory failure and severe symptomatic hyponatremia. PLAN: 1. Severe hyponatremia. Patient most likely has a combination of syndrome of inappropriate secretion of antidiuretic hormone (SIADH), which is made worse by his alcohol intake. Patient rapidly corrected overnight. He was given a dose of DDAVP and started on D5. I would continue the patient on D5W; I am going to decrease the rate to 60 mL. I would like him to correct his sodium from 118 to around 126 in the next 24 hours, which is around 8 mEq. Continue basic metabolic panel (BMP) every 4 hours and urine osmolality every 4 hours as well. His IV fluid rate will be changed accordingly, according to his sodium correction rate. If the patient corrects to more than 10 mEq in the next 24 hours, then he would be given another dose of DDAVP. Continue to monitor hourly intake and output. Avoid giving selective serotonin reuptake inhibitors (SSRIs) to this patient, which can sometimes precipitate SIADH. 2. Hypertension. The patient is nothing by mouth at this time. He has nasogastric tube to suctioning. The patient was on lisinopril, bisoprolol and diltiazem at home. Home medications are on hold. I am going to start the patient on labetalol 10 mg IV every 6 hours, hold for systolic blood pressure (SBP) less than 110 and heart rate less than 60. 3. Hypokalemia. Hypokalemia is secondary to high urine output at this time because the patient is rapidly correcting his sodium. Potassium is being followed every 4 hours and being repleted accordingly. 4. Hypocalcemia. Calcium is probably low because of low albumin level. I would check the ionized calcium level and replete potassium as needed. 5. Hypophosphatemia. The patient is going to get 30 millimole of phosphorus. Phosphorus level will be serially monitored and repleted accordingly. 6. Hypomagnesemia. The patient got 1 gram of magnesium IV this morning. I am going to give the patient another dose of 1 gram of magnesium and will followup in 4 hours. 7. Vent dependent respiratory failure. The patient's FiO2 requirement is very low. He is waking up on the vent. The patient can possibly be extubated today after weaning off of sedation. The rest of the management is as per critical care team. 8. History of alcohol abuse. Continue alcohol withdrawal precautions. Okay to continue oxazepam at this time. Dose can be slowly tapered off once the patient is extubated. 9. Diabetes mellitus type 2. Okay to continue insulin sliding scale at this time. Once the patient starts eating, then his home medications can be resumed. 10. History of depression. I recommend holding the citalopram, which is an selective serotonin reuptake inhibitor, and it can cause SIADH. The patient should be on a nonSSRI antidepressant at this time. The plan of care was discussed with the critical care attending, Dr. Ordoñez, and with the patient's RN at the bedside. Thank you for involving us in the care of this patient. We shall be happy to follow the patient along with you tomorrow morning. I spent more than 45 minutes in the care of this patient.
[2017-04-09] MEDS: PANTOPRAZOLE 40MG INJ (PROTONIX) (C9113) IV SCH (21:58)
[2017-04-09] MEDS ORDERED: LORazepam 2 MG/ML VIAL (J2060) IV PRN (22:00)
[2017-04-09 22:19] LABS: MAGNESIUM LEVEL 1.5 MG/DL (1.8-2.4); PHOSPHORUS LEVEL 3.2 MG/DL (2.5-4.9)
[2017-04-09 22:20] LABS: ANION GAP 7 MEQ/L (8-16); BLOOD UREA NITROGEN 1 MG/DL (7-18); CALCIUM LEVEL 8.1 MG/DL (8.5-10.1); CARBON DIOXIDE LEVEL 36 MEQ/L (21-32); CHLORIDE LEVEL 71 MEQ/L (98-107); GLOMERULAR FILTRATION RATE > 60.0 (>56); GLUCOSE, FASTING 144 MG/DL (70-105); SODIUM LEVEL 114 MEQ/L (136-145)
[2017-04-09 23:34] LABS: ANION GAP 6 MEQ/L (8-16); BLOOD UREA NITROGEN 2 MG/DL (7-18); CALCIUM LEVEL 8.2 MG/DL (8.5-10.1); CARBON DIOXIDE LEVEL 38 MEQ/L (21-32); CHLORIDE LEVEL 72 MEQ/L (98-107); CREATININE FOR GFR 0.31 MG/DL (0.70-1.30); GLOMERULAR FILTRATION RATE > 60.0 (>56); GLUCOSE, FASTING 149 MG/DL (70-105); POTASSIUM SERUM 3.9 MEQ/L (3.5-5.1); SODIUM LEVEL 116 MEQ/L (136-145)
[2017-04-10] VITALS (22 sets, daily range): BP systolic 126–195; BP diastolic 58–97; O2SAT 95
[2017-04-10] MEDS ORDERED: FUROSEMIDE 20 MG/2 ML VIAL (J1940) IV ONE (00:15)
[2017-04-10] MEDS: LORazepam 2 MG/ML VIAL (J2060) IV PRN ×2 (00:57→03:30)
[2017-04-10 02:23] LABS: ANION GAP 7 MEQ/L (8-16); BLOOD UREA NITROGEN 1 MG/DL (7-18); CALCIUM LEVEL 8.4 MG/DL (8.5-10.1); CARBON DIOXIDE LEVEL 41 MEQ/L (21-32); CHLORIDE LEVEL 73 MEQ/L (98-107); CREATININE FOR GFR 0.35 MG/DL (0.70-1.30); GLOMERULAR FILTRATION RATE > 60.0 (>56); GLUCOSE, FASTING 136 MG/DL (70-105); SODIUM LEVEL 121 MEQ/L (136-145)
[2017-04-10] MEDS: IPRATROPIUM 0.5MG/ALBUTEROL 2.5MG INH SOL UD 3ML (DUONEB)(J7620) NEB SCH ×6 (02:32→23:17)
[2017-04-10] MEDS ORDERED: MAG SULF 1GM/100ML (MAG RUN) 1 GM in APPROPRIATE DILUENT 1 EA IV ONE (02:45)
[2017-04-10 05:12] LABS: BASO % 0.2 % (0.0-1.0); EOS # 0.2 K/mm3 (0.0-0.50); EOS % 1.3 % (0.0-3.0); LARGE UNSTAINED CELL # 0.1 K/mm3 (0.0-0.4); LARGE UNSTAINED CELL % 0.8 % (0.0-4.0); LYMPH # 0.9 K/mm3 (1.5-4.5); LYMPH % 6.7 % (24.0-44.0); MEAN CORPUSCULAR HEMOGLOBIN 33.6 pg (27.0-33.0); MEAN CORPUSCULAR HGB CONC 35.5 g/dl (32.0-36.5); MEAN CORPUSCULAR VOLUME 94.7 fl (80.0-96.0); MONO # 0.4 K/mm3 (0.0-0.8); MONO % 3.5 % (0.0-5.0); NEUTROPHILS # 10.1 K/mm3 (1.8-7.7); NEUTROPHILS % 87.5 % (36.0-66.0); PLATELET COUNT, AUTOMATED 248 k/mm3 (150-450); RED CELL DISTRIBUTION WIDTH 13.9 % (11.5-14.5); WHITE BLOOD COUNT 11.5 K/mm3 (4.0-10.0)
[2017-04-10 05:54] LABS: ALBUMIN 2.6 GM/DL (3.2-5.2); ALBUMIN/GLOBULIN RATIO 0.68 (1.00-1.93); ALKALINE PHOSPHATASE 100 U/L (45-117); ALT/SGPT 37 U/L (12-78); ANION GAP 9 MEQ/L (8-16); AST/SGOT 67 U/L (15-37); BILIRUBIN,TOTAL 0.9 MG/DL (0.2-1.0); BLOOD UREA NITROGEN 2 MG/DL (7-18); CALCIUM LEVEL 8.3 MG/DL (8.5-10.1); CARBON DIOXIDE LEVEL 39 MEQ/L (21-32); CHLORIDE LEVEL 72 MEQ/L (98-107); CHOLESTEROL LEVEL 189 MG/DL (< 200); CREATININE FOR GFR 0.32 MG/DL (0.70-1.30); GLOMERULAR FILTRATION RATE > 60.0 (>56); GLUCOSE, FASTING 145 MG/DL (70-105); MAGNESIUM LEVEL 1.6 MG/DL (1.8-2.4); PHOSPHORUS LEVEL 3.6 MG/DL (2.5-4.9); POTASSIUM SERUM 3.7 MEQ/L (3.5-5.1); SODIUM LEVEL 120 MEQ/L (136-145); TOTAL PROTEIN 6.4 GM/DL (6.4-8.2); TRIGLYCERIDES LEVEL 81 MG/DL (<150)
[2017-04-10] MEDS: OXAZEPAM 10 MG CAP PO SCH (06:19)
[2017-04-10] MEDS: HEPARIN SOD (PORCINE) 5000 UNITS/ML VIAL SC SCH ×3 (06:19→21:02)
[2017-04-10] MEDS: HumaLOG INSULIN (NovoLOG) PER UNIT SC SCH ×3 (06:20→17:14)
[2017-04-10] MEDS: LABETALOL HCL 100 MG/20 ML VIAL IV SCH (06:27)
[2017-04-10 07:37] LABS: ABG BASE EXCESS 9.5 (-2.0-2.0); ABG DEVICE AEROSOL MASK; ABG HCO3 37.9 MEQ/L (22.0-26.0); ABG STANDARD HCO3 33.1 MEQ/L (22.0-26.0)
[2017-04-10 07:41] LABS: ABG PARTIAL PRESSURE CO2 68.7 mmHg (35.0-45.0)
[2017-04-10] MEDS: BUDESONIDE 0.5 MG/2 ML INHALATION SUSPENSION INH SCH ×2 (07:52→19:51)
[2017-04-10] MEDS ORDERED: FUROSEMIDE 20 MG/2 ML VIAL (J1940) IV SCH (09:00)
[2017-04-10] MEDS ORDERED: OXAZEPAM 10 MG CAP PO PRN (10:00)
[2017-04-10] MEDS ORDERED: D5W/0.9% SODIUM CHLORIDE 1,000 ML IV SCH (10:45)
[2017-04-10 11:10] LABS: ANION GAP 6 MEQ/L (8-16); BLOOD UREA NITROGEN 2 MG/DL (7-18); CALCIUM LEVEL 8.2 MG/DL (8.5-10.1); CARBON DIOXIDE LEVEL 40 MEQ/L (21-32); CHLORIDE LEVEL 71 MEQ/L (98-107); CREATININE FOR GFR 0.24 MG/DL (0.70-1.30); GLOMERULAR FILTRATION RATE > 60.0 (>56); GLUCOSE, FASTING 128 MG/DL (70-105); SODIUM LEVEL 117 MEQ/L (136-145)
[2017-04-10] MEDS ORDERED: hydrALAZINE INJ 20 MG/ML VIAL IV SCH (12:00)
[2017-04-10 15:06] LABS: ANION GAP 7 MEQ/L (8-16); BLOOD UREA NITROGEN 2 MG/DL (7-18); CALCIUM LEVEL 8.5 MG/DL (8.5-10.1); CARBON DIOXIDE LEVEL 41 MEQ/L (21-32); CHLORIDE LEVEL 73 MEQ/L (98-107); CREATININE FOR GFR 0.39 MG/DL (0.70-1.30); GLUCOSE, FASTING 127 MG/DL (70-105); POTASSIUM SERUM 3.8 MEQ/L (3.5-5.1); SODIUM LEVEL 121 MEQ/L (136-145)
[2017-04-10 15:07] LABS: GLOMERULAR FILTRATION RATE > 60.0 (>56)
[2017-04-10] MEDS ORDERED: TOLVAPTAN 15 MG TAB (SAMSCA) PO ONE (16:00)
[2017-04-10] MEDS: hydrALAZINE INJ 20 MG/ML VIAL IV SCH ×2 (16:52→21:02)
[2017-04-10 18:39] LABS: BLOOD UREA NITROGEN 3 MG/DL (7-18); CALCIUM LEVEL 8.8 MG/DL (8.5-10.1); CARBON DIOXIDE LEVEL 39 MEQ/L (21-32); CHLORIDE LEVEL 73 MEQ/L (98-107); CREATININE FOR GFR 0.34 MG/DL (0.70-1.30); GLOMERULAR FILTRATION RATE > 60.0 (>56); GLUCOSE, FASTING 135 MG/DL (70-105)
[2017-04-10 18:47] LABS: ANION GAP 10 MEQ/L (8-16); POTASSIUM SERUM 3.8 MEQ/L (3.5-5.1); SODIUM LEVEL 122 MEQ/L (136-145)
--- NOTE | 2017-04-10 20:41 | IPN ---
DATE: 04/10/2017 SUBJECTIVE: Patient was seen and examined at the bedside today in the morning in the intensive care unit (ICU). Last 24 hour events were noted. I was actually called for serial lab results overnight. Patient's sodium level continued to fluctuate around 120. Patient also was agitated overnight. He was given Ativan IV because of alcohol withdrawal, however patient became obtunded with the use of benzodiazepines. He was retaining CO2. He is currently on bilevel positive airway pressure (BiPAP) at this time. He is otherwise calm and easily arousable on vocal stimuli. Patient is hemodynamically stable. REVIEW OF SYSTEMS: Patient is unable to provide any reliable review of systems because he is drowsy and currently on BiPAP. OBJECTIVE: VITAL SIGNS: Temperature is 98.1 degrees Fahrenheit, blood pressure is 165/73, pulse is 89, respiratory rate of 24, saturating 92% on BiPAP. INTAKE and OUTPUT: Urine output recorded is 2.6 liters yesterday, 3.4 liters so far today since overnight. Weight in the bed scale is 127 kg. PHYSICAL EXAMINATION: GENERAL: Patient is drowsy and sleepy, currently on BiPAP. HEAD and NECK EXAM: Extraocular muscles intact. Pupils equally round and reactive to light. The patient is wearing a BiPAP mask at this time. Neck is supple. There is no jugular venous distention (JVD). CARDIOVASCULAR: S1, S2, regular rate. No murmur, rub or gallop. RESPIRATORY: Patient has mild expiratory rhonchi at the bases, otherwise bilateral equal air entry. ABDOMEN: Soft, obese. Positive bowel sounds. Nontender, no ascites, no organomegaly. EXTREMITIES: No clubbing or cyanosis. He has trace edema of the bilateral lower extremities. CENTRAL NERVOUS SYSTEM: The patient is drowsy and obtunded currently requiring BiPAP. SKIN: No rashes or ulcers. LABORATORY REVIEW: CBC showed a WBC 11.5, hemoglobin 13.7, platelets are 248. Latest urine osmolality is 242. ABG done this morning showed a pH of 7.36, pCO2 of 68, pO2 of 64, bicarbonate is 37, oxygen saturation is 90.7%. Latest BMP showed sodium 121, potassium 3.8, chloride 73, bicarbonate 41, BUN is 2, creatinine is 0.39, calcium is 8.5, phosphorus 3.6, magnesium 1.6, albumin 2.3. CURRENT INPATIENT MEDICATIONS: Patient's medications were all reviewed by me. He is currently on dextrose 5% (D5) normal saline at 60 mL/hour, dextrose 5% in water (D5W) has been stopped. Patient got magnesium sulfate 1 gram IV times one dose this morning. Patient was given Lasix 20 mg IV last night and 20 mg IV this morning. His labetalol has been stopped. He has been started on hydralazine 10 mg IV every 4 hours. Ativan was also stopped. Patient was given one dose of Samsca 15 mg by mouth today in the afternoon. ASSESSMENT: 57-year-old male with past medical history of hypertension, alcohol abuse, diabetes mellitus type 2, history of hyponatremia in the past as well, admitted at this time to intensive care unit (ICU) with vent dependent respiratory failure and severe symptomatic hyponatremia. PLAN: 1. Severe hyponatremia. It is euvolemic hypotonic hyponatremia with high urine osmolality and urine sodium, compatible with syndrome of inappropriate secretion of antidiuretic hormone (SIADH), and that gets worse when patient drinks alcohol because kidneys lose the ability to dilute urine with low osmolar diet. Patient initially over corrected 2 days ago, however sodium is fluctuating around 120 right now. Initially patient was started on normal saline and Lasix, but patient is slightly more awake in the afternoon today. He was given a dose of Tolvaptan 15 mg by mouth times one dose. Continue to monitor basic metabolic panel (BMP) every 4 hours. Avoid selective serotonin reuptake inhibitors (SSRIs) for depression because they can cause syndrome of inappropriate secretion of antidiuretic hormone (SIADH) as well. 2. Hypertension. The patient is nothing by mouth at this time. His lisinopril, bisoprolol, and diltiazem are on hold. He was initially started on labetalol but because of his CO2 retention and requiring BiPAP, beta blockers have been stopped. Patient has been switched to hydralazine 10 mg IV every 4 hours. 3. Hypokalemia. Potassium is acceptable at this time. Continue to monitor potassium level and replete as needed. 4. Hypomagnesemia. Patient was given magnesium sulfate 1 gram IV times one dose today morning. 5. Hypocalcemia. Calcium level has improved to 8.5 now. Continue to monitor calcium level with serial basic metabolic panel (BMP). 6. CO2 narcosis and dependent on BiPAP. Continue the management as per pulmonary critical care team. Patient was just extubated yesterday. Part of his CO2 narcosis is because of use of benzodiazepines for alcohol withdrawal. 7. Alcohol withdrawal. Patient was given Ativan last night but that made him obtunded. Continue the oral oxazepam at this time. As needed Ativan has been stopped. 8. History of depression. Avoid selective serotonin reuptake inhibitors (SSRIs ) for depression because of syndrome of inappropriate secretion of antidiuretic hormone (SIADH). 9. Diabetes mellitus type 2. Blood glucose is within acceptable limit. Continue insulin sliding scale. Total critical care time spent 45 min. That does not include serial lab monitoring and medication adjustment Q 4hr in the last 24 hr. MTDD
[2017-04-10] MEDS: PANTOPRAZOLE 40MG INJ (PROTONIX) (C9113) IV SCH (21:02)
[2017-04-10] MEDS ORDERED: LORazepam 2 MG/ML VIAL (J2060) IV PRN (22:00)
[2017-04-10 23:47] LABS: ANION GAP 7 MEQ/L (8-16); BLOOD UREA NITROGEN 2 MG/DL (7-18); CALCIUM LEVEL 8.8 MG/DL (8.5-10.1); CARBON DIOXIDE LEVEL 35 MEQ/L (21-32); CHLORIDE LEVEL 79 MEQ/L (98-107); CREATININE FOR GFR 0.37 MG/DL (0.70-1.30); GLOMERULAR FILTRATION RATE > 60.0 (>56); GLUCOSE, FASTING 136 MG/DL (70-105); POTASSIUM SERUM 3.8 MEQ/L (3.5-5.1); SODIUM LEVEL 121 MEQ/L (136-145)
[2017-04-11] VITALS (12 sets, daily range): BP systolic 124–161; BP diastolic 60–83; O2SAT 92
[2017-04-11] MEDS: hydrALAZINE INJ 20 MG/ML VIAL IV SCH ×6 (00:18→20:00)
[2017-04-11] MEDS: HumaLOG INSULIN (NovoLOG) PER UNIT SC SCH ×5 (00:20→21:00)
[2017-04-11] MEDS: IPRATROPIUM 0.5MG/ALBUTEROL 2.5MG INH SOL UD 3ML (DUONEB)(J7620) NEB SCH ×2 (02:59→08:41)
[2017-04-11 03:15] LABS: BASO % 0.4 % (0.0-1.0); EOS # 0.6 K/mm3 (0.0-0.50); LARGE UNSTAINED CELL # 0.1 K/mm3 (0.0-0.4); LARGE UNSTAINED CELL % 1.2 % (0.0-4.0); LYMPH # 0.8 K/mm3 (1.5-4.5); LYMPH % 5.6 % (24.0-44.0); MEAN CORPUSCULAR HEMOGLOBIN 33.2 pg (27.0-33.0); MEAN CORPUSCULAR HGB CONC 34.3 g/dl (32.0-36.5); MEAN CORPUSCULAR VOLUME 96.9 fl (80.0-96.0); MONO # 0.5 K/mm3 (0.0-0.8); MONO % 4.2 % (0.0-5.0); NEUTROPHILS # 9.5 K/mm3 (1.8-7.7); NEUTROPHILS % 83.6 % (36.0-66.0); PLATELET COUNT, AUTOMATED 252 k/mm3 (150-450); RED CELL DISTRIBUTION WIDTH 13.9 % (11.5-14.5); WHITE BLOOD COUNT 11.4 K/mm3 (4.0-10.0)
[2017-04-11 03:43] LABS: ALT/SGPT 38 U/L (12-78); ANION GAP 8 MEQ/L (8-16); AST/SGOT 52 U/L (15-37); BLOOD UREA NITROGEN 2 MG/DL (7-18); CALCIUM LEVEL 9.1 MG/DL (8.5-10.1); CARBON DIOXIDE LEVEL 37 MEQ/L (21-32); CHLORIDE LEVEL 80 MEQ/L (98-107); CREATININE FOR GFR 0.41 MG/DL (0.70-1.30); GLOMERULAR FILTRATION RATE > 60.0 (>56); GLUCOSE, FASTING 132 MG/DL (70-105); POTASSIUM SERUM 3.7 MEQ/L (3.5-5.1); SODIUM LEVEL 125 MEQ/L (136-145)
[2017-04-11 03:44] LABS: ALBUMIN 2.9 GM/DL (3.2-5.2); ALBUMIN/GLOBULIN RATIO 0.63 (1.00-1.93); ALKALINE PHOSPHATASE 115 U/L (45-117); BILIRUBIN,TOTAL 0.8 MG/DL (0.2-1.0); CHOLESTEROL LEVEL 212 MG/DL (< 200); MAGNESIUM LEVEL 1.4 MG/DL (1.8-2.4); TOTAL PROTEIN 7.5 GM/DL (6.4-8.2); TRIGLYCERIDES LEVEL 98 MG/DL (<150)
[2017-04-11] MEDS ORDERED: MAG SULF 1GM/100ML (MAG RUN) 1 GM in APPROPRIATE DILUENT 1 EA IV ONE (04:00)
[2017-04-11] MEDS: HEPARIN SOD (PORCINE) 5000 UNITS/ML VIAL SC SCH ×3 (05:53→21:28)
[2017-04-11] MEDS ORDERED: OXAZEPAM 10 MG CAP PO PRN (06:00)
[2017-04-11] MEDS: BUDESONIDE 0.5 MG/2 ML INHALATION SUSPENSION INH SCH (08:41)
[2017-04-11] MEDS ORDERED: TOLVAPTAN 15 MG TAB (SAMSCA) PO ONE (09:30)
[2017-04-11 11:30] LABS: OSMOLALITY URINE 311 MOSM/KG (500-800)
[2017-04-11] MEDS: TIOTROPIUM INHALER/CAPSULE (SPIRIVA) INH SCH (11:34)
[2017-04-11] MEDS: SYMBICORT 160/4.5MCG INHALER 6GM INH SCH ×2 (11:34→19:25)
[2017-04-11] MEDS: MAGNESIUM OXIDE 400 MG TAB (MAG-OX) PO SCH ×2 (12:01→21:28)
[2017-04-11] MEDS: BISOPROLOL FUMARATE 10 MG TAB PO SCH (12:01)
[2017-04-11 12:36] LABS: ANION GAP 8 MEQ/L (8-16); BLOOD UREA NITROGEN 5 MG/DL (7-18); CALCIUM LEVEL 9.3 MG/DL (8.5-10.1); CARBON DIOXIDE LEVEL 37 MEQ/L (21-32); CHLORIDE LEVEL 83 MEQ/L (98-107); CREATININE FOR GFR 0.55 MG/DL (0.70-1.30); GLOMERULAR FILTRATION RATE > 60.0 (>56); GLUCOSE, FASTING 119 MG/DL (70-105); POTASSIUM SERUM 3.7 MEQ/L (3.5-5.1); SODIUM LEVEL 128 MEQ/L (136-145)
[2017-04-11] MEDS: GLIMEPIRIDE 2 MG TAB PO SCH (13:24)
[2017-04-11] MEDS: MONTELUKAST 10 MG TAB PO SCH (13:24)
[2017-04-11 21:01] LABS: ANION GAP 6 MEQ/L (8-16); BLOOD UREA NITROGEN 6 MG/DL (7-18); CARBON DIOXIDE LEVEL 38 MEQ/L (21-32); CHLORIDE LEVEL 82 MEQ/L (98-107); CREATININE FOR GFR 0.55 MG/DL (0.70-1.30); GLOMERULAR FILTRATION RATE > 60.0 (>56); GLUCOSE, FASTING 102 MG/DL (70-105); POTASSIUM SERUM 3.8 MEQ/L (3.5-5.1); SODIUM LEVEL 126 MEQ/L (136-145)
[2017-04-11] MEDS: PANTOPRAZOLE 40MG INJ (PROTONIX) (C9113) IV SCH (21:28)
[2017-04-11] MEDS ORDERED: ALBUTEROL SULFATE 2.5 MG/0.5 ML INH NEB SOLN NEB PRN (21:30)
[2017-04-12] VITALS (10 sets, daily range): BP systolic 114–169; BP diastolic 57–76; O2SAT 94
[2017-04-12] MEDS: hydrALAZINE INJ 20 MG/ML VIAL IV SCH ×3 (01:10→08:31)
[2017-04-12 04:34] LABS: BASO % 0.3 % (0.0-1.0); EOS # 0.7 K/mm3 (0.0-0.50); EOS % 7.3 % (0.0-3.0); LARGE UNSTAINED CELL # 0.2 K/mm3 (0.0-0.4); LARGE UNSTAINED CELL % 1.8 % (0.0-4.0); LYMPH # 0.7 K/mm3 (1.5-4.5); LYMPH % 7.4 % (24.0-44.0); MEAN CORPUSCULAR HEMOGLOBIN 33.7 pg (27.0-33.0); MEAN CORPUSCULAR HGB CONC 33.8 g/dl (32.0-36.5); MEAN CORPUSCULAR VOLUME 99.5 fl (80.0-96.0); MONO # 0.5 K/mm3 (0.0-0.8); MONO % 5.1 % (0.0-5.0); NEUTROPHILS # 7.5 K/mm3 (1.8-7.7); NEUTROPHILS % 78.1 % (36.0-66.0); PLATELET COUNT, AUTOMATED 326 k/mm3 (150-450); RED CELL DISTRIBUTION WIDTH 13.6 % (11.5-14.5); WHITE BLOOD COUNT 9.6 K/mm3 (4.0-10.0)
[2017-04-12] MEDS: HEPARIN SOD (PORCINE) 5000 UNITS/ML VIAL SC SCH ×3 (04:52→21:09)
[2017-04-12 04:56] LABS: ALBUMIN 2.7 GM/DL (3.2-5.2); ALBUMIN/GLOBULIN RATIO 0.64 (1.00-1.93); ALKALINE PHOSPHATASE 120 U/L (45-117); ALT/SGPT 34 U/L (12-78); ANION GAP 7 MEQ/L (8-16); AST/SGOT 39 U/L (15-37); BILIRUBIN,TOTAL 0.6 MG/DL (0.2-1.0); BLOOD UREA NITROGEN 5 MG/DL (7-18); CALCIUM LEVEL 8.8 MG/DL (8.5-10.1); CARBON DIOXIDE LEVEL 37 MEQ/L (21-32); CHLORIDE LEVEL 82 MEQ/L (98-107); CHOLESTEROL LEVEL 183 MG/DL (< 200); CREATININE FOR GFR 0.39 MG/DL (0.70-1.30); GLOMERULAR FILTRATION RATE > 60.0 (>56); GLUCOSE, FASTING 135 MG/DL (70-105); MAGNESIUM LEVEL 1.8 MG/DL (1.8-2.4); PHOSPHORUS LEVEL 3.1 MG/DL (2.5-4.9); POTASSIUM SERUM 3.4 MEQ/L (3.5-5.1); SODIUM LEVEL 126 MEQ/L (136-145); TOTAL PROTEIN 6.9 GM/DL (6.4-8.2); TRIGLYCERIDES LEVEL 80 MG/DL (<150)
[2017-04-12] MEDS: SYMBICORT 160/4.5MCG INHALER 6GM INH SCH ×2 (07:45→20:37)
[2017-04-12] MEDS: TIOTROPIUM INHALER/CAPSULE (SPIRIVA) INH SCH (07:45)
[2017-04-12] MEDS: MAGNESIUM OXIDE 400 MG TAB (MAG-OX) PO SCH ×2 (08:30→21:08)
[2017-04-12] MEDS: MONTELUKAST 10 MG TAB PO SCH (08:30)
[2017-04-12] MEDS: GLIMEPIRIDE 2 MG TAB PO SCH (08:31)
[2017-04-12] MEDS: HumaLOG INSULIN (NovoLOG) PER UNIT SC SCH ×4 (08:40→21:00)
[2017-04-12] MEDS: BISOPROLOL FUMARATE 10 MG TAB PO SCH (08:41)
[2017-04-12] MEDS: cloNIDine 0.1 MG TAB PO SCH ×3 (09:00→21:00)
[2017-04-12] MEDS: POTASSIUM CHLORIDE 10 MEQ SR TABLET PO SCH (09:47)
[2017-04-12] MEDS: SODIUM CHLORIDE 1 GM TAB PO SCH ×2 (09:47→21:08)
[2017-04-12] MEDS ORDERED: TOLVAPTAN 15 MG TAB (SAMSCA) PO ONE (10:00)
--- NOTE | 2017-04-12 10:49 | IPNPDOC ---
Subjective Date Seen The patient was seen on 04/12/17. Subjective Chief Complaint/HPI The patient is a 57-year-old male admitted with a reason for visit of Hyponatremia. Events since last encounter feeling better today , walked with PT yesterday , has disbalance and needs a cane to walk at home . denies any SOB , denies any cough or phlegm , denies any chest pain , no nausea or vomiting or diarrhea, no fever or chills Objective Physical Examination General Exam: Positive: Alert, Cooperative, No Acute Distress Eye Exam: Positive: PERRLA, Conjunctiva & lids normal, EOMI, Negative: Sclera icteric ENT Exam: Positive: Atraumatic, Mucous membr. moist/pink, Pharynx Normal Neck Exam: Positive: Supple, Negative: JVD, thyromegaly Chest Exam: Positive: Clear to auscultation, Diminished Heart Exam: Positive: Rate Normal, Regular Rhythm, Normal S1, Normal S2, Negative: Murmurs, Rubs Abdomen Exam: Positive: Normal bowel sounds, Soft, Negative: Tenderness, Hepatospenomegaly Extremity Exam: Positive: Edema, Normal pulses Skin Exam: Positive: Nl turgor and temperature, Negative: Rash, Breakdown Assessment /Plan Problems (1) Acute hyponatremia Status: Acute Response to Treatment: Improving Problem Text: admitted with Na of 104 at [facility] then transferred here. Had over corrected in the first 2 days now stabilized around 125. due to SIADH and alcohol abuse plan as per nephrology (2) Acute metabolic encephalopathy Status: Resolved Problem Text: due to severe hyponatremia (3) Obesity Status: Chronic (4) Acute on chronic respiratory failure with hypoxia and hypercapnia Status: Resolved Problem Text: Patient was intubated for acute encephalopathy and inability to protect the airway however patient does have chronic hypercarbic and hypoxic respiratory failure possibly due to obesity hypoventilation /MARCOS . Also carries a diagnosis of COPD. was then extubted and put on BIPAP now on oxygen by nasal canula. (5) COPD (chronic obstructive pulmonary disease) Status: Chronic Problem Text: continue symbicort, tiotropium and albuterol prn. (6) Cirrhosis, alcoholic Status: Chronic (7) MARCOS (obstructive sleep apnea) Status: Chronic Problem Text: will need sleep study as an outpatient. (8) Chronic alcohol abuse Status: Chronic Problem Text: continue serax prn for agitation (9) HTN (hypertension) Status: Chronic Problem Text: continue diltiazem . Patient respiratory status had worsened with beta remington so was discontinued will give clonidine prn if required. (10) Diabetes Status: Chronic Problem Text: continue oral glimepiride and insulin. Plan/VTE VTE Prophylaxis Ordered?: Yes Plan/Urinary Catheter Reason for insertion/continuin: Critical Pt monitoring VS, I&O, 24H, Fishbone Vital Signs/I&O Vital Signs Date Time Temp Pulse Resp B/P (MAP) Pulse Ox O2 Delivery O2 Flow Rate FiO2 04/12/17 09:51 73 114/62 (79) 04/12/17 08:00 97.5 22 96 Nasal Cannula 3.0 04/11/17 06:13 30 I&O- Last 24 Hours up to 6 AM 04/12/17 06:00 Intake Total 990 ml Output Total 410 ml Balance 580 ml Laboratory Data 24H LABS Laboratory Tests 2 04/11/17 11:11: Urine Random Osmolality 311L, Urine Random Sodium 30 04/11/17 11:59: Bedside Glucose (Misc Panel) 124H 04/11/17 12:03: Anion Gap 8, Glomerular Filtration Rate > 60.0, Blood Urea Nitrogen 5#L, Creatinine 0.55L, Sodium Level 128L, Potassium Level 3.7, Chloride Level 83L, Carbon Dioxide Level 37H, Calcium Level 9.3 04/11/17 20:09: Anion Gap 6L, Glomerular Filtration Rate > 60.0, Blood Urea Nitrogen 6L, Creatinine 0.55L, Sodium Level 126L, Potassium Level 3.8, Chloride Level 82L, Carbon Dioxide Level 38H, Calcium Level 9.0 04/12/17 04:17: White Blood Count 9.6, Red Blood Count 4.27L, Hemoglobin 14.4, Hematocrit 42.5, Mean Corpuscular Volume 99.5H, Mean Corpuscular Hemoglobin 33.7H, Mean Corpuscular Hemoglobin Concent 33.8, Red Cell Distribution Width 13.6, Platelet Count 326, Neutrophils (%) (Auto) 78.1H, Lymphocytes (%) (Auto) 7.4L, Monocytes (%) (Auto) 5.1H, Eosinophils (%) (Auto) 7.3H, Basophils (%) (Auto) 0.3, Neutrophils # (Auto) 7.5, Lymphocytes # (Auto) 0.7L, Monocytes # (Auto) 0.5, Eosinophils # (Auto) 0.7H, Basophils # (Auto) 0.0, Large Unclassified Cells % 1.8, Large Unclassified Cells # 0.2, Anion Gap 7L, Glomerular Filtration Rate > 60.0, Blood Urea Nitrogen 5L, Creatinine 0.39L, Sodium Level 126L, Potassium Level 3.4L, Chloride Level 82L, Carbon Dioxide Level 37H, Calcium Level 8.8, Phosphorus Level 3.1, Aspartate Amino Transf (AST/SGOT) 39H, Alanine Aminotransferase (ALT/SGPT) 34, Lactate Dehydrogenase 210, Total Creatine Kinase 344H, Alkaline Phosphatase 120H, Total Bilirubin 0.6, Triglycerides Level 80, Cholesterol Level 183, Total Protein 6.9, Albumin 2.7L, Magnesium Level 1.8, Albumin/Globulin Ratio 0.64L 04/12/17 08:09: Bedside Glucose (Misc Panel) 142H CBC/BMP Laboratory Tests 04/11/17 12:03 Calcium Level 9.3 04/11/17 20:09 Calcium Level 9.0 04/12/17 04:17 Calcium Level 8.8, Red Blood Count 4.27 L, Mean Corpuscular Volume 99.5 H, Mean Corpuscular Hemoglobin 33.7 H, Mean Corpuscular Hemoglobin Concent 33.8, Red Cell Distribution Width 13.6, Neutrophils (%) (Auto) 78.1 H, Lymphocytes (%) ( Auto) 7.4 L, Monocytes (%) (Auto) 5.1 H, Eosinophils (%) (Auto) 7.3 H, Basophils (%) (Auto) 0.3, Neutrophils # (Auto) 7.5, Lymphocytes # (Auto) 0.7 L, Monocytes # (Auto) 0.5, Eosinophils # (Auto) 0.7 H, Basophils # (Auto) 0.0, Phosphorus Level 3.1, Aspartate Amino Transf (AST/SGOT) 39 H, Alanine Aminotransferase (ALT/SGPT) 34, Lactate Dehydrogenase 210, Total Creatine Kinase 344 H, Alkaline Phosphatase 120 H, Total Bilirubin 0.6, Triglycerides Level 80, Cholesterol Level 183, Total Protein 6.9, Albumin 2.7 L BRANDAN REID MD Apr 12, 2017 10:49
--- NOTE | 2017-04-12 14:18 | CCN ---
DATE OF SERVICE: 04/11/2017 SUBJECTIVE: The patient was seen and examined at the bedside today in the morning in intensive care unit (ICU). Last 24 hour events were noted. Last 24 hour serial laboratories were monitored, evaluated, and discussed with the nursing staff by me personally. The patient feels significantly better today. He is off the bilateral positive airway pressure (BiPAP) at this moment. The patient was able to tolerate his breakfast this morning. His sodium level has improved to 125 as of 3 a.m. laboratories. His renal function is stable. The patient is hemodynamically stable. REVIEW OF SYSTEMS: The patient denies any fever, chills, rigors, headache, nausea, vomiting, chest pain, shortness of breath, pain abdomen, constipation, diarrhea, and any muscle aches and pains. The rest of review of systems is negative. OBJECTIVE: VITAL SIGNS: Temperature is 97.1 degrees Fahrenheit, blood pressure is 142/64, pulse is 116, respiratory rate of 18, saturating 95% on nasal cannula at 3 liters. INTAKE AND OUTPUT: Urine output recorded is 6.6 liters yesterday, 1 liter so far today since overnight. Weight in the bed scale is 121.1 kg. PHYSICAL EXAMINATION: GENERAL: The patient is awake, alert, oriented times two, laying in bed, currently wearing nasal cannula. No apparent distress at this time. HEAD AND NECK EXAMINATION: Extraocular muscles intact. Pupils equally round and reactive to light. Mucous membranes are moist. Neck is supple. There is no jugular venous distention (JVD). CARDIOVASCULAR: S1, S2, regular rate. No murmur, rub, and gallop. RESPIRATORY: Lungs are a lot more clear today. However, he does have some mild expiratory rhonchi on the left side. Nonlabored breathing. He is currently on nasal cannula. ABDOMEN: Soft, obese. Positive bowel sounds. Nontender, no ascites, no organomegaly. GENITOURINARY: The patient still has an indwelling Short catheter at this time. Urine in the bag is clear. EXTREMITIES: No clubbing or cyanosis. Pulses are 2+. There is no edema of the bilateral lower extremities. CENTRAL NERVOUS SYSTEM: No focal deficit. He is oriented times two. He follows commands at this time. SKIN: No rashes or ulcers. PSYCHIATRIC: The patient is much more alert and coherent at this time. Mood is appropriate. LABORATORY REVIEW: CBC showed a WBC of 11.4, hemoglobin 15.5, platelets are 252. Urine osmolality this morning is 311. BMP this morning showed sodium 125, potassium 3.7, chloride 80, bicarbonate 37, BUN is 2, creatinine is 0.4, magnesium 1.4, total creatinine kinase is 700 now. CURRENT INPATIENT MEDICATIONS: The patient's medications were all reviewed by me. The changes in medications include: He was given 1 gram of magnesium sulfate [employer]. He is on Proventil nebulization every 4 hours as needed. I started the patient on bisoprolol 10 mg by mouth daily, as per his home dose. He has been started on diltiazem 120 mg by mouth daily, as per his home regimen. The patient has been started on Symbicort two puffs twice a day. I have started the patient on Enbrel 2 mg by mouth daily. He has been started on magnesium oxide 400 mg by mouth twice a day. He was started on Singulair 10 mg by mouth daily, as per his home regimen. He continues to be on oxazepam 10 mg every 4 hours as needed anxiety and agitation. He has been started on Spiriva one inhalation daily. The patient was given another dose of [id number] mg by mouth times one dose. There is no other change in the medications today as compared with yesterday. ASSESSMENT: A 57-year-old male with past medical history of hypertension, alcohol abuse, diabetes mellitus type 2, history of hyponatremia in the past, admitted at this time to intensive care unit (ICU) with vent-dependent respiratory failure and severe symptomatic hyponatremia. PLAN: 1. Severe hyponatremia. The patient had euvolemic hypotonic hyponatremia with high urine osmolality and urine sodium compatible with syndrome of inappropriate secretion of antidiuretic hormone (SIADH). The patient was given a dose of Tolvaptan yesterday. Sodium is up to 125 today. I have given him another dose of Tolvaptan 15 mg, and I expect that his sodium should normalize by tomorrow morning. Continue the fluid restriction 1500 mL daily. I have changed the basic metabolic profile (BMP) to every 8 hours at this time. Avoid use of selective serotonin reuptake inhibitor (SSRI) antidepressant medications. 2. Hypertension. The patient was nothing by mouth, and he was getting intravenous (IV) hydralazine for hypertension. However, today, he started tolerating his diet. I have restarted the patient's bisoprolol 10 mg daily, cardizem 120 mg by mouth daily. Continue the IV hydralazine every 4 hours as needed. I am going to hold the lisinopril for now until the patient's sodium level improves. 3. Metabolic alkalosis. It is secondary to the patient's CO2 retention. Bicarbonate is 37, which is acceptable at this time. 4. Hypomagnesemia. The patient was already given a dose magnesium sulfate 1 gram IV times one dose. 5. History of chronic obstructive pulmonary disease (COPD) and CO2 narcosis. The patient is much more better now. He is awake and alert. Pulmonary team is trying to arrange his home continuous positive airway pressure (CPAP) to be used in the hospital. Continue the nebulizations as per pulmonary service. I have restarted the patient's home dose of montelukast. The rest of the management is as per pulmonary. 6. Alcohol withdrawal. The patient is currently on oxazepam as needed, and his symptoms are well controlled. 7. History of depression. The patient's selective serotonin reuptake inhibitors (SSRIs) and antipsychotics are on hold. The patient should not receive SSRIs again because of history of SIADH. 8. Diabetes mellitus type 2. I have restarted the patient on Amaryl 2 mg by mouth daily. Blood glucose levels are within acceptable limits. Continue insulin sliding scale at this time. 9. Cardiovascular. The patient has tachycardia, which should improve with the bisoprolol and Cardizem. Hypertension is being controlled with IV medications. Oral medications were started today. 10. Gastrointestinal (GI). The patient is tolerating the liquid diet. Advance diet as tolerated to 2000 kilocalories ADA diet with 1500 mL fluid restriction. 11. Hemotological/oncological. Hemoglobin level is stable at 15.5. No acute issues at this time. Total critical care time spent in management of this patient was 45 minutes.
[2017-04-13] MEDS: HEPARIN SOD (PORCINE) 5000 UNITS/ML VIAL SC SCH (05:47)
[2017-04-13 06:00] VITALS: BP 138/82
[2017-04-13 06:47] LABS: ALBUMIN 2.6 GM/DL (3.2-5.2); ALBUMIN/GLOBULIN RATIO 0.65 (1.00-1.93); ALKALINE PHOSPHATASE 117 U/L (45-117); ALT/SGPT 31 U/L (12-78); ANION GAP 5 MEQ/L (8-16); AST/SGOT 29 U/L (15-37); BILIRUBIN,TOTAL 0.6 MG/DL (0.2-1.0); BLOOD UREA NITROGEN 6 MG/DL (7-18); CALCIUM LEVEL 8.5 MG/DL (8.5-10.1); CARBON DIOXIDE LEVEL 37 MEQ/L (21-32); CHLORIDE LEVEL 85 MEQ/L (98-107); CHOLESTEROL LEVEL 188 MG/DL (< 200); CREATININE FOR GFR 0.48 MG/DL (0.70-1.30); GLOMERULAR FILTRATION RATE > 60.0 (>56); GLUCOSE, FASTING 124 MG/DL (70-105); MAGNESIUM LEVEL 1.7 MG/DL (1.8-2.4); POTASSIUM SERUM 3.5 MEQ/L (3.5-5.1); SODIUM LEVEL 127 MEQ/L (136-145); TOTAL PROTEIN 6.6 GM/DL (6.4-8.2); TRIGLYCERIDES LEVEL 106 MG/DL (<150)
[2017-04-13 07:00] LABS: BASO % 0.3 % (0.0-1.0); EOS # 0.9 K/mm3 (0.0-0.50); EOS % 8.9 % (0.0-3.0); LARGE UNSTAINED CELL # 0.1 K/mm3 (0.0-0.4); LARGE UNSTAINED CELL % 1.3 % (0.0-4.0); LYMPH # 0.6 K/mm3 (1.5-4.5); LYMPH % 5.6 % (24.0-44.0); MEAN CORPUSCULAR HEMOGLOBIN 33.9 pg (27.0-33.0); MEAN CORPUSCULAR HGB CONC 34.3 g/dl (32.0-36.5); MEAN CORPUSCULAR VOLUME 98.9 fl (80.0-96.0); MONO # 0.5 K/mm3 (0.0-0.8); MONO % 4.8 % (0.0-5.0); NEUTROPHILS % 79.1 % (36.0-66.0); PLATELET COUNT, AUTOMATED 328 k/mm3 (150-450); RED CELL DISTRIBUTION WIDTH 13.5 % (11.5-14.5); WHITE BLOOD COUNT 10.1 K/mm3 (4.0-10.0)
[2017-04-13 07:30] LABS: ABG BASE EXCESS 7.4 (-2.0-2.0); ABG HCO3 33.4 MEQ/L (22.0-26.0); ABG PARTIAL PRESSURE CO2 52.6 mmHg (35.0-45.0); ABG PARTIAL PRESSURE O2 88.2 mmHg (75.0-100.0); ABG STANDARD HCO3 31.2 MEQ/L (22.0-26.0)
[2017-04-13] MEDS: TIOTROPIUM INHALER/CAPSULE (SPIRIVA) INH SCH (07:37)
[2017-04-13] MEDS: SYMBICORT 160/4.5MCG INHALER 6GM INH SCH (07:38)
[2017-04-13] MEDS: cloNIDine 0.1 MG TAB PO SCH (07:43)
[2017-04-13] MEDS: MAGNESIUM OXIDE 400 MG TAB (MAG-OX) PO SCH (07:43)
[2017-04-13] MEDS: MONTELUKAST 10 MG TAB PO SCH (07:43)
[2017-04-13] MEDS: POTASSIUM CHLORIDE 10 MEQ SR TABLET PO SCH (07:44)
[2017-04-13] MEDS: BISOPROLOL FUMARATE 10 MG TAB PO SCH (07:44)
[2017-04-13] MEDS: SODIUM CHLORIDE 1 GM TAB PO SCH (07:44)
[2017-04-13] MEDS: HumaLOG INSULIN (NovoLOG) PER UNIT SC SCH ×2 (07:45→12:00)
[2017-04-13] MEDS: GLIMEPIRIDE 2 MG TAB PO SCH (07:45)
[2017-04-13] MEDS ORDERED: FUROSEMIDE 40 MG TAB PO SCH (09:00)
[2017-04-13] MEDS ORDERED: TOLVAPTAN 15 MG TAB (SAMSCA) PO ONE (09:30)
[2017-04-13] MEDS ORDERED: OXAZEPAM 10 MG CAP PO PRN (10:00)
--- NOTE | 2017-04-13 10:20 | IPNPDOC ---
Subjective Date Seen The patient was seen on 04/13/17. Subjective Chief Complaint/HPI The patient is a 57-year-old male admitted with a reason for visit of Hyponatremia. Events since last encounter patient noncompliant with fluid restriction . Noted trying to take a 6 pack of soda from the pantry by the nurses last night . Wants to go home today says has a program this afternoon. still requiring 3 liters of Oxygen which is above his baseline. denies any SOb or cough , denies any chest pain , denies any nausea or vomiting or diarrhea. Objective Physical Examination General Exam: Positive: Alert, Cooperative, No Acute Distress Eye Exam: Positive: PERRLA, Conjunctiva & lids normal, EOMI, Negative: Sclera icteric ENT Exam: Positive: Atraumatic, Mucous membr. moist/pink, Pharynx Normal Neck Exam: Positive: Supple, Negative: JVD, thyromegaly Chest Exam: Positive: Clear to auscultation, Diminished Heart Exam: Positive: Rate Normal, Regular Rhythm, Normal S1, Normal S2, Negative: Murmurs, Rubs Abdomen Exam: Positive: Normal bowel sounds, Soft, Negative: Tenderness, Hepatospenomegaly Extremity Exam: Positive: Edema, Normal pulses Skin Exam: Positive: Nl turgor and temperature, Negative: Rash, Breakdown Assessment /Plan Problems (1) Acute hyponatremia Status: Acute Response to Treatment: Improving Problem Text: admitted with Na of 104 at [facility] then transferred here. Had over corrected in the first 2 days now stabilized around 125. due to SIADH and alcohol abuse plan as per nephrology Non complaint with fluid restriction. (2) Acute metabolic encephalopathy Status: Resolved Problem Text: due to severe hyponatremia (3) Obesity Status: Chronic (4) Acute on chronic respiratory failure with hypoxia and hypercapnia Status: Resolved Problem Text: Patient was intubated for acute encephalopathy and inability to protect the airway however patient does have chronic hypercarbic and hypoxic respiratory failure possibly due to obesity hypoventilation /MARCOS . Also carries a diagnosis of COPD. was then extubted and put on BIPAP now on oxygen by nasal canula. (5) COPD (chronic obstructive pulmonary disease) Status: Chronic Problem Text: continue symbicort, tiotropium and albuterol prn. (6) Cirrhosis, alcoholic Status: Chronic (7) MARCOS (obstructive sleep apnea) Status: Chronic Problem Text: will need sleep study as an outpatient. (8) Chronic alcohol abuse Status: Chronic Problem Text: continue serax prn for agitation (9) HTN (hypertension) Status: Chronic Problem Text: continue diltiazem . Patient respiratory status had worsened with beta remington so was discontinued will give clonidine prn if required. (10) Diabetes Status: Chronic Problem Text: continue oral glimepiride and insulin. Plan/VTE VTE Prophylaxis Ordered?: Yes Plan/Urinary Catheter Reason for insertion/continuin: Critical Pt monitoring VS, I&O, 24H, Fishbone Vital Signs/I&O Vital Signs Date Time Temp Pulse Resp B/P (MAP) Pulse Ox O2 Delivery O2 Flow Rate FiO2 04/13/17 09:00 Nasal Cannula 3.0 04/13/17 06:00 98.2 79 20 138/82 (100) 91 04/11/17 06:13 30 I&O- Last 24 Hours up to 6 AM 04/13/17 06:00 Intake Total 2760 ml Output Total 2025 ml Balance 735 ml Laboratory Data 24H LABS Laboratory Tests 2 04/12/17 11:32: Bedside Glucose (Misc Panel) 122H 04/12/17 16:52: Bedside Glucose (Misc Panel) 170H 04/12/17 20:00: Bedside Glucose (Misc Panel) 116H 04/13/17 06:04: White Blood Count 10.1H, Red Blood Count 4.03L, Hemoglobin 13.7L, Hematocrit 39.9L, Mean Corpuscular Volume 98.9H, Mean Corpuscular Hemoglobin 33.9H, Mean Corpuscular Hemoglobin Concent 34.3, Red Cell Distribution Width 13.5, Platelet Count 328, Neutrophils (%) (Auto) 79.1H, Lymphocytes (%) (Auto) 5.6L, Monocytes (%) (Auto) 4.8, Eosinophils (%) (Auto) 8.9H, Basophils (%) (Auto) 0.3, Neutrophils # (Auto) 8.0H, Lymphocytes # (Auto) 0.6L, Monocytes # (Auto) 0.5, Eosinophils # (Auto) 0.9H, Basophils # (Auto) 0.0, Large Unclassified Cells % 1.3, Large Unclassified Cells # 0.1, Anion Gap 5L, Glomerular Filtration Rate > 60.0, Blood Urea Nitrogen 6L, Creatinine 0.48L, Sodium Level 127L, Potassium Level 3.5, Chloride Level 85L, Carbon Dioxide Level 37H, Calcium Level 8.5, Phosphorus Level 3.0, Aspartate Amino Transf (AST/SGOT) 29, Alanine Aminotransferase (ALT/SGPT) 31, Lactate Dehydrogenase 212, Total Creatine Kinase 139, Alkaline Phosphatase 117, Total Bilirubin 0.6, Triglycerides Level 106, Cholesterol Level 188, Total Protein 6.6, Albumin 2.6L, Magnesium Level 1.7L, Albumin/Globulin Ratio 0.65L 04/13/17 07:16: Blood Gas Bicarbonate Standard 31.2H, Arterial Blood pH 7.420, Arterial Blood Partial Pressure CO2 52.6H, Arterial Blood Partial Pressure O2 88.2, Arterial Blood Total CO2 35.0H, Arterial Blood HCO3 33.4H, Arterial Blood Base Excess 7.4H, Arterial Blood Oxygen Saturation 96.6 CBC/BMP Laboratory Tests 04/13/17 06:04 Red Blood Count 4.03 L, Mean Corpuscular Volume 98.9 H, Mean Corpuscular Hemoglobin 33.9 H, Mean Corpuscular Hemoglobin Concent 34.3, Red Cell Distribution Width 13.5, Neutrophils (%) (Auto) 79.1 H, Lymphocytes (%) (Auto) 5.6 L, Monocytes (%) (Auto) 4.8, Eosinophils (%) (Auto) 8.9 H, Basophils (%) ( Auto) 0.3, Neutrophils # (Auto) 8.0 H, Lymphocytes # (Auto) 0.6 L, Monocytes # ( Auto) 0.5, Eosinophils # (Auto) 0.9 H, Basophils # (Auto) 0.0, Calcium Level 8.5 , Phosphorus Level 3.0, Aspartate Amino Transf (AST/SGOT) 29, Alanine Aminotransferase (ALT/SGPT) 31, Lactate Dehydrogenase 212, Total Creatine Kinase 139, Alkaline Phosphatase 117, Total Bilirubin 0.6, Triglycerides Level 106, Cholesterol Level 188, Total Protein 6.6, Albumin 2.6 L BRANDAN REID MD Apr 13, 2017 10:20
[2017-04-13] MEDS ORDERED: TIOT18INH INH (11:19)
[2017-04-13] MEDS ORDERED: FURO40TA2 PO (11:19)
[2017-04-13] MEDS ORDERED: MAG400TA PO (11:19)
[2017-04-13] MEDS ORDERED: POTA10CA PO (11:19)
--- NOTE | 2017-04-13 17:34 | IPN ---
DATE: 04/12/2017 SUBJECTIVE: The patient was seen and examined at the bedside today morning in the intensive care unit (ICU). He feels much better. He was sitting on the bed. He is clinically much more stable. However, his sodium is still low at 126 at this time. His blood pressure is better controlled today. REVIEW OF SYSTEMS: The patient denies any fevers, chills, rigors, headaches, nausea, vomiting, chest pain, shortness of breath, pain in the abdomen, constipation and diarrhea. The rest of the review of systems is negative. OBJECTIVE: VITAL SIGNS: Temperature is 97.3 degrees Fahrenheit, blood pressure is 121/60, pulse is 91, respiratory rate of 18, saturating 90% on nasal cannula at 3 liters. Intake and output: Urine output recorded is 1 liter yesterday, 700 mL so far today since overnight. PHYSICAL EXAMINATION: GENERAL: The patient is awake, alert and oriented times two, sitting in the bed, in no apparent distress. HEAD AND NECK EXAM: Extraocular muscles intact. Pupils equally round and reactive to light. Mucous membranes are moist. Neck is supple. No jugular venous distension (JVD). CARDIOVASCULAR: S1, S2 regular rate. No murmur, rub or gallop. RESPIRATORY: Chest is clear to auscultation bilaterally. Bilateral equal air entry. No rales or rhonchi. ABDOMEN: Soft, positive bowel sounds. Obese, nontender. No ascites. No organomegaly. GENITOURINARY (): Short catheter is out at this time. EXTREMITIES: No clubbing or cyanosis. Pulses are 2+. No edema of the bilateral lower extremities. CENTRAL NERVOUS SYSTEM: No focal neurological deficit. Power is 5/5 in all extremities. PSYCHIATRIC: Normal mood and affect. LABORATORY REVIEW: Complete blood count (CBC) showed a white blood count (WBC) 9.6, hemoglobin 14.4, platelets are 326. Basic metabolic panel (BMP) showed sodium 126, potassium 3.4, chloride 82, bicarbonate 37, BUN 5, creatine is 0.39, albumin is 2.7. CURRENT INPATIENT MEDICATIONS: The patient's medications were all reviewed by me. The patient has been started on clonidine 0.1 mg by mouth three times a day. Hydralazine has been stopped. Oxazepam has been changed to 10 mg by mouth every 6 hours as needed for anxiety or agitation. The patient has been started on potassium chloride 40 mEq by mouth daily. He has been started on sodium chloride 1 gram by mouth twice a day and the patient got another dose of tolvaptan 30 mg by mouth one dose. ASSESSMENT: 57-yea-old male with past medical history of hypertension, alcohol abuse, diabetes mellitus type 2, history of hyponatremia in the past, admitted this time to intensive care unit (ICU) initially with vent dependent respiratory failure and severe symptomatic hyponatremia. 1. Severe hyponatremia. It is secondary to syndrome of inappropriate secretion of antidiuretic hormone (SIADH). Sodium is 126. The patient did not respond very well to Samsca 15 mg. I have increased the dose of 30 mg now. Continue the fluid restriction at 15 mL daily. I have also started the patient on salt tablet 1 gram by mouth twice a day. Continue to avoid SSRIs in the future. 2. Hypertension. Blood pressure is better controlled at this time. Continue bisoprolol, Cardizem; hydralazine has been stopped. I am not restarted the lisinopril because the patient still has hyponatremia. The patient has been started on clonidine. Blood pressure is acceptable at this time. 3. Metabolic alkalosis. This is secondary to CO2 retention. Bicarbonate is stable at around 37 to 38. 4. Hypokalemia. The patient has been started on potassium chloride 40 mEq by mouth daily. Continue to monitor the potassium level at this time. 5. History of depression. Avoid SSRIs in the future because of history of syndrome of inappropriate secretion of antidiuretic hormone (SIADH).
--- NOTE | 2017-04-13 22:06 | IPN ---
DATE: 04/13/2017 SUBJECTIVE: The patient was seen and examined at the bedside today in the morning. He was sitting in the bed without any active complaints. The patient wants to go home today. Sodium level was stable at 127 today. The patient reports that his sodium level always stays around 127 to 128. He was given a dose of Samsca again yesterday. I was told by the nursing staff on the floor that the patient kept on drinking his soda and water from the pantry, and he was not following the strict 1.5 liter fluid intake. REVIEW OF SYSTEMS: The patient denies any fevers, chills, rigors, headaches, nausea, vomiting, chest pain, shortness of breath, pain abdomen, constipation, or diarrhea. Rest of review of systems is negative. OBJECTIVE: VITAL SIGNS: Temperature is 98.2 degrees Fahrenheit, blood pressure is 138/82, pulse is 79, respiratory rate of 18, saturating 91% on room air. INTAKE AND OUTPUT: Urine output recorded as 1.4 liters yesterday, 625 mL so far today, but patient's intake was more than 2.5 liters yesterday. Weight in the bed scale is 121.3 kg. PHYSICAL EXAMINATION: GENERAL: The patient is awake, alert, and oriented times three, sitting in bed in no apparent distress. HEAD/NECK: Extraocular muscles intact. Pupils equal, round, and reactive to light. Mucous membranes are moist. Neck is supple. There is no jugular venous distention (JVD). CARDIOVASCULAR: S1, S2, regular rate. No murmur, rub, or gallop. RESPIRATORY: Chest is clear to auscultation bilaterally. Bilateral equal air entry. No rales or rhonchi. ABDOMEN: Soft. Positive bowel sounds. Nontender. No ascites, no organomegaly. GENITOURINARY: Short catheter is out. The patient is able to urinate in the urinal. EXTREMITIES: No clubbing or cyanosis. Pulses are 2+. No edema of the bilateral lower extremities. CENTRAL NERVOUS SYSTEM ([employer]ITY): No focal neurological deficit. Power is 5/5 in all extremities. PSYCHIATRIC: Normal mood and affect. LABORATORY DATA: CBC showed a WBC of 10.1, hemoglobin 13.7, platelets are 328. BMP showed sodium 127, potassium 3.5, chloride 85, bicarbonate is 37, BUN is 6, creatinine 0.48, glucose 124, magnesium 1.7. CURRENT INPATIENT MEDICATIONS: The patient's medications were all reviewed by me. I have started the patient on Lasix 40 mg by mouth twice a day. He continues to be on salt tablet 1 gram by mouth twice a day. I also gave the patient another dose of Samsca 30 mg by mouth times one dose today morning. There is no other change in the medications today. ASSESSMENT: A 57-year-old male with past medical history of hypertension, alcohol abuse, diabetes mellitus type 2, history of hyponatremia in the past, admitted this time because of ventilator dependent respiratory failure secondary to severe, symptomatic hyponatremia. PLAN: 1. Hyponatremia. The patient's sodium level has stabilized at around 127. Last admission laboratories and previous sodium levels were reviewed. The patient's best baseline sodium is 129, and the patient reports that he remains asymptomatic with these sodium levels. I have restarted the patient on salt tablet 1 gram by mouth twice a day and low dose of Lasix 40 mg by mouth twice a day for syndrome of inappropriate secretion of antidiuretic hormone (SIADH). The patient was instructed again to follow the strict fluid restriction diet which I think is probably he is not going to follow when he goes home, and his selective serotonin reuptake inhibitors (SSRIs) have also been stopped at this time. 2. Hypertension. The patient's blood pressure is acceptable at this time. He can be discharged home on the current regimen of clonidine 0.1 mg by mouth three times a day, diltiazem 120 mg by mouth daily, and bisoprolol 10 mg by mouth daily. Avoid the lisinopril because of history of hyponatremia. 3. Hypomagnesemia. Continue current dose of magnesium oxide 400 mg by mouth twice a day. 4. History of depression. Avoid the SSRIs in future because of SIADH and severe hyponatremia and multiple admissions with hyponatremia. 5. Discharge planning. It is okay to discharge the patient from nephrology standpoint. He needs to followup with nephrology clinic within one week after discharge from the hospital. Plan of care was discussed with the hospitalist, Dr. Maria Luisa Gilman.
[2017-04-14] MEDS ORDERED: BISOPROLOL FUMARATE 10 MG TAB PO SCH (09:00)
--- NOTE | 2017-04-18 16:42 | DSES ---
DATE OF ADMISSION: 04/07/2017 DATE OF DISCHARGE: 04/13/2017 PRIMARY CARE PROVIDER: Dr. Addison DISCHARGE DIAGNOSES: 1. Acute on chronic hyponatremia due to syndrome of inappropriate secretion of antidiuretic hormone and alcohol abuse and SSRI use. 2. Chronic Alcohol abuse 3. Acute metabolic encephalopathy due to severe hyponatremia. 4. Acute on chronic respiratory failure with hypoxia and hypercarbia. 5. Obesity. 6. Chronic obstructive pulmonary disease. 7. Alcoholic cirrhosis. 8. Obstructive sleep apnea. 9. Electrolyte abnormalities 10. Hypertension. 11. Diabetes. DISCHARGE MEDICATIONS: - Lasix 40 mg by mouth twice a day - magnesium oxide 400 mg by mouth twice a day - potassium chloride 40 mEq by mouth daily - Spiriva one inhalation daily - albuterol sulfate nebulizer solution, one such every 4 hours as needed for shortness of breath - Amaryl 2 mg by mouth daily - bisoprolol 10 mg by mouth daily - diltiazem 120 mg by mouth daily - Breo Ellipta 100/25 one puff inhalation daily - gabapentin 300 mg by mouth three times a day - metformin 1000 mg by mouth twice a day - Singulair 10 mg by mouth daily - omeprazole 40 mg by mouth daily - sodium chloride 1 gram tablet, one such by mouth twice a day HOSPITAL COURSE: This is a 57-year-old male with a history of chronic hyponatremia and chronic alcohol abuse who was transferred from [facility] for acute on chronic hyponatremia with a sodium of 104 and acute metabolic encephalopathy with loss of consciousness and fall at home, which then emergency medical services (EMS) was called, and patient was taken to [facility]. Because of his acute metabolic encephalopathy and being incoherent and combative, patient was intubated and sedated and was then transferred to our hospital for further management. Immediately after intubation patient had become hypotensive and was immediately transferred here. Here, again noted patient's sodium was 104; however, his hypotension had resolved. Patient was admitted to intensive care unit (ICU) for acute on chronic hyponatremia, acute metabolic encephalopathy, acute on chronic hypoxic and hypercarbic respiratory failure. Patient is morbidly obese with history of chronic obstructive pulmonary disease (COPD) and obstructive sleep apnea (MARCOS) and history of chronic hypoxic and hypercarbic respiratory failure, which was thought to be worsened due to his altered mental status and severe hyponatremia. Patient was treated in the ICU for 3 days. Patient was seen by assistant professor of biology, and hyponatremia was managed as per nephrology recommendation. Patient was successfully extubated on 04/09/2017 and was put on bilevel positive airway pressure (BiPAP), subsequently changed to CPAP mode, and then changed to nasal cannula, which he tolerated well, and subsequently patient was transferred to the floor. Patient was noted to have hypoventilation and hypoxia when he was falling asleep, which suggested presence of MARCOS. Patient would need formal sleep study done after he is discharged from hospital. On the day of discharge, patient did not have any symptoms. Vital signs were stable and was functionally at baseline. Patient's sodium was close to his baseline, and he was maintaining his oxygen saturations with 2-3 liters of nasal cannula. PHYSICAL EXAMINATION: VITAL SIGNS: Temperature 98.2, pulse 79, respiratory rate 20, blood pressure 138/82, pulse oximetry 91% with 3 liters nasal cannula. GENERAL: Patient awake, alert, oriented times three, sitting up in bed in no acute distress. HEENT: Normocephalic, atraumatic. Moist mucous membranes. Anicteric eyes. CHEST: Clear to auscultation; however, overall poor air entry. CARDIOVASCULAR: S1, S2, regular. No rub, murmur, or gallop. ABDOMEN: Obese, soft, nontender. Bowel sounds present. EXTREMITIES: 2+ pedal edema. LABORATORY DATA: WBC 10.1, hemoglobin 13.7, platelets 328. Sodium 127, potassium 3.5, chloride 85, bicarbonate 37, BUN 6, creatinine 0.4, glucose 124. Liver function tests are normal. Blood gas showed 7.42, pCO2 of 52, pO2 of 88 with 2 liters nasal cannula. Chest x-ray showed perihilar and predominantly left lower lobe opacities, similar to prior examination. Small left effusion cannot be ruled out. DISPOSITION: Patient is discharged home in stable condition. Patient advised to strictly refrain from abusing alcohol. DISCHARGE INSTRUCTIONS: Patient to followup with Dr. Ordoñez in 1-2 weeks. Patient to followup with Dr. Jean in 1 week. Patient to followup with primary care provider in 2 weeks. Regular diet. Fluid restriction 1.5 liters in 24 hours. MTDD
== END 2017-04-13 13:46 | disposition home or self-care (01) | DRG 425 ==
LOC: M ICU 21:07 → M MSPAV 04-12 15:11
PROVIDERS: ADMIT Internal Medicine Pulmonary Disease; ATTEND Internal Medicine Nephrology
PROC: 5A1945Z Respiratory Ventilation, 24-96 Consecutive Hours (ICD-10-PCS; principal; 2017-04-07)
DX: E87.1 Hypo-osmolality and hyponatremia (principal); J96.21 Acute and chronic respiratory failure with hypoxia; G93.41 Metabolic encephalopathy; E22.2 Syndrome of inappropriate secretion of antidiuretic hormone; J96.22 Acute and chronic respiratory failure with hypercapnia; K70.30 Alcoholic cirrhosis of liver without ascites; J44.9 Chronic obstructive pulmonary disease, unspecified; E66.01 Morbid (severe) obesity due to excess calories; E83.42 Hypomagnesemia; E83.51 Hypocalcemia; G47.33 Obstructive sleep apnea (adult) (pediatric); E11.9 Type 2 diabetes mellitus without complications; I10 Essential (primary) hypertension; F10.20 Alcohol dependence, uncomplicated; Z79.899 Other long term (current) drug therapy; Z91.19 Patient's noncompliance with other medical treatment and regimen; K21.9 Gastro-esophageal reflux disease without esophagitis; E87.6 Hypokalemia

== ENCOUNTER 2018-06-07 07:58 | Day surgery (SDC) | payer OTHER ==
[2018-06-07] MEDS: LR 1,000 ML IV (08:23)
[2018-06-07] MEDS ORDERED: ALBUTEROL SULFATE 2.5 MG/0.5 ML INH NEB SOLN As Ordered (08:30)
[2018-06-07 08:38] LABS: BEDSIDE GLUCOSE 140 MG/DL (70-105)
[2018-06-07] MEDS ORDERED: ALBUTEROL SULFATE 2.5 MG/0.5 ML INH NEB SOLN INH (09:00)
[2018-06-07] MEDS ORDERED: ROCURONIUM BROMIDE 50 MG/5 ML VIAL As Ordered (09:21)
[2018-06-07] MEDS ORDERED: fentaNYL 250 MCG/5 ML INJECTION (J3010) As Ordered (09:21)
[2018-06-07] MEDS ORDERED: LIDOCAINE 2% INJ 100 MG/5 ML SDV (FOR ANES.) As Ordered (09:21)
[2018-06-07] MEDS ORDERED: MIDAZOLAM INJ 2 MG/2 ML VIAL (J2250) As Ordered (09:21)
[2018-06-07] MEDS ORDERED: dexameTHASONE 4 MG/ML 1ML VIAL (J1100) As Ordered (09:21)
[2018-06-07] MEDS ORDERED: PROPOFOL 200 MG/20 ML VIAL As Ordered (09:21)
[2018-06-07] MEDS ORDERED: KETOROLAC 60 MG/2 ML VIAL (J1885) As Ordered (09:32)
[2018-06-07] MEDS ORDERED: NEOSTIGMINE 10 MG/10 ML VIAL (J2710) As Ordered (09:32)
[2018-06-07] MEDS ORDERED: ONDANSETRON 4MG/2ML VIAL (J2405) As Ordered (09:32)
[2018-06-07] MEDS ORDERED: GLYCOPYRROLATE INJ 0.2 MG/ML 2 ML VIAL As Ordered (09:32)
[2018-06-07] MEDS: LIDOCAINE W/EPINEPHRINE 1% 20ML VIAL As Ordered (09:45)
[2018-06-07] MEDS ORDERED: SUGAMMADEX SODIUM 500 MG/5 ML VIAL (BRIDION) As Ordered (09:46)
[2018-06-07] MEDS ORDERED: LR 1,000 ML IV ×2 (10:00→10:15)
[2018-06-07] MEDS: ALBUTEROL SULFATE 2.5 MG/0.5 ML INH NEB SOLN INH (10:03)
[2018-06-07] MEDS: PERCOCET 5MG/325MG TAB PO ×2 (10:13→10:44)
[2018-06-07] MEDS ORDERED: ONDANSETRON 4MG/2ML VIAL (J2405) IV (10:15)
[2018-06-07] MEDS ORDERED: fentaNYL 100 MCG/2 ML INJECTION (J3010) IV (10:15)
[2018-06-07] MEDS ORDERED: MEPERIDINE INJ 25 MG/ML VIAL (J2175) IV (10:15)
[2018-06-07] MEDS ORDERED: METOCLOPRAMIDE INJ 10MG/2ML VIAL (J2765) IV (10:15)
== END 2018-06-07 12:10 | disposition home or self-care (01) ==
LOC: M SDC 07:58
DX: K02.9 Dental caries, unspecified (principal); K01.1 Impacted teeth; J44.9 Chronic obstructive pulmonary disease, unspecified; E11.9 Type 2 diabetes mellitus without complications; I10 Essential (primary) hypertension; Z79.899 Other long term (current) drug therapy; Z87.891 Personal history of nicotine dependence
CPT/HCPCS: D7210

== ENCOUNTER → 2019-06-26 | Outpatient (REF) | payer OTHER ==
[~2019-06-26] MED LIST changes: +ALLO10TA PO; +AMAR1TAB5 PO; -ASPI1TAB PO; +ASPI81TA26 PO; -BISO5TAB5 PO; +BISO5TAB9 PO; +CART120C PO; +CELE20TA PO; -CITA20TA4 PO; +CITA20TA6 PO; +COZA1TAB PO; +FAMO40TA3 PO; +FOLI1TAB11 PO; -FOLI1TAB2 PO; +FURO10EL PO; +FURO40TA2 PO; +FURO80TA2 PO; -GABA-282 PO; +GABA-843 PO; +K-TA1TAB PO; +KLOR10TA76 PO; -LASI20TA PO; +LASI20TA3 PO; +MAG400TA PO; +MAGN1TAB26 PO; +MAGN400C2 PO; +METF10004 PO; -METF500T PO; +METF500T13 PO; +METR-265 PO; -METR500T10 PO; +OMEP40CA2 PO; -OXAZ10CA PO; +OXAZ10CA3 PO; +PERC5TAB12 PO; -PERC5TAB6 PO; +POTA20EL PO; +SING10TA32 PO; +SODI1TAB6 PO; +SPIR-10 PO; -THIA100T PO; +THIA100T7 PO; +TIOT18INH INH; +TRUL10IN SC; +ZANA4CAP PO; -ZOFR20TA PO; +ZOFR4TAB16 PO
[2019-06-26 13:59] LABS: SODIUM,RANDOM URINE 41 MEQ/L
[2019-06-26 14:12] LABS: OSMOLALITY URINE 481 MOSM/KG (500-800)
== END ==
LOC: M LAB REF 13:20
PROVIDERS: ATTEND Internal Medicine Nephrology
DX: E87.1 Hypo-osmolality and hyponatremia (principal)

== ENCOUNTER 2024-04-10 07:08 | Day surgery (SDC) | payer OTHER ==
[~2024-04-10] VITALS: Ht 177.8 cm; Wt 128.3 kg
[~2024-04-10 07:08] MED LIST changes: +ALBU2.5V10 INH; -ALBU83IN INH; +BISO10TA13 PO; +BISO1TAB18 PO; +BISO5TAB14 PO; -BISO5TAB2 PO; -BISO5TAB9 PO; -COZA1TAB PO; +CYCL-707 PO; -CYCL10TA PO; +GABA-282 PO; -GABA-843 PO; +IRON27TA2 PO; -KLOR10TA76 PO; -LISI-538 PO; +LISI20TA33 PO; +LOSA-527 PO; -MAG400TA PO; +MAGN400T35 PO; +MONT-5 PO; -OMEP40CA2 PO; +OMEP40CA4 PO; +ONDA-282 PO; -ONDA4TAB6 PO; +POTA-136 PO; +POTA-149 PO; -POTA10TA16 PO; -POTA20EL PO; +POTA20LI16 PO; +SALMDISK INH; -SING10TA32 PO; +TIRZ2.5P PO
[2024-04-10] MEDS ORDERED: MIDAZOLAM INJ 2MG/2ML VIAL As Ordered ONE (08:00)
[2024-04-10] MEDS ORDERED: fentaNYL 100 MCG/2 ML INJECTION As Ordered ONE (08:00)
[2024-04-10] MEDS: LIDOCAINE 3.5 % 1ML OPHTH TOPICAL GEL OU ONE (08:17)
[2024-04-10] MEDS: POVIDONE-IODINE 5% OPHTH PREP SOL 30ML As Ordered ONE (08:24)
[2024-04-10] MEDS: LIDOCAINE 1% SDV 5ML VIAL As Ordered ONE (08:28)
[2024-04-10] MEDS: mitoMYcin 0.2 MG/VIAL KIT FOR OPHTHALMIC USE As Ordered ONE (08:28)
[2024-04-10] MEDS: TOBRADEX OPHTH OINT 3.5 GM As Ordered ONE (08:29)
[2024-04-10 08:36] VITALS: BP 142/66; TEMP 97.6; O2SAT 92
== END 2024-04-10 08:55 | disposition home or self-care (01) ==
LOC: M SDC 07:08
PROVIDERS: ATTEND Ophthalmology
DX: H40.812 Glaucoma with increased episcleral venous pressure, left eye (principal); E11.9 Type 2 diabetes mellitus without complications; R60.0 Localized edema; K44.9 Diaphragmatic hernia without obstruction or gangrene; J44.9 Chronic obstructive pulmonary disease, unspecified; Z87.891 Personal history of nicotine dependence; F12.10 Cannabis abuse, uncomplicated; F41.9 Anxiety disorder, unspecified; F32.A Depression, unspecified; Z79.84 Long term (current) use of oral hypoglycemic drugs; Z79.899 Other long term (current) drug therapy
CPT/HCPCS: 66183; C1783; J2250; J3010; J7315

== ENCOUNTER → 2024-10-28 | Outpatient (REF) | payer OTHER ==
[~2024-10-28] MED LIST changes: +GABA-1172 PO; -GABA-282 PO
[2024-10-28 17:43] LABS: CREATININE,RANDOM URINE 71.7 MG/DL; TOTAL PROTEIN,RANDOM URINE 46.7 MG/DL (0.0-14.0)
== END ==
LOC: M LAB REF 16:47
PROVIDERS: ATTEND Internal Medicine Nephrology
DX: E11.22 Type 2 diabetes mellitus with diabetic chronic kidney disease (principal)

== ENCOUNTER 2024-12-18 11:57 | Day surgery (SDC) | payer OTHER ==
[~2024-12-18] VITALS: Ht 177.8 cm; Wt 131.6 kg
[~2024-12-18 11:57] MED LIST changes: +ALBU8.5H INH; +ALLO100T PO; +BRIM0.2S13 OU; +CONS10SO3 PO; +DILT120C89 PO; +DORZ2SOL4 OU; +GABA-1490 PO; +GLIM2TAB29 PO; +LIDOCAINE 2% 100MG/5ML SDV (FOR ANES.) As Ordered ONE; +OMEP40CA5 PO; +POTA-151 PO; +SPIR50TA4 PO; +THEO300T33 PO; +propofoL 200 MG/20 ML VIAL As Ordered ONE
[2024-12-18] MEDS ORDERED: fentaNYL 100 MCG/2 ML INJECTION As Ordered ONE (12:47)
[2024-12-18] MEDS ORDERED: MIDAZOLAM INJ 2MG/2ML VIAL As Ordered ONE (12:48)
[2024-12-18] MEDS: LIDOCAINE 3.5 % 1ML OPHTH TOPICAL GEL OU ONE (13:23)
[2024-12-18] MEDS: OFLOXACIN 0.3 % (OCUFLOX) OPTH SOL 5ML OS ONE (13:23)
[2024-12-18] MEDS: CYCLOPENTOLATE 1% OPHTH SOLN 2ML BTL OS SCH (13:23)
[2024-12-18] MEDS: PHENYLEPHRINE 2.5% OPHTH SOL 2ML OS SCH (13:24)
[2024-12-18] MEDS: TROPICAMIDE 1% OPHTH SOLN 15ML OS SCH (13:24)
[2024-12-18] MEDS: PHENYLEPHRINE 10% OPHTH SOL 5ML OS PRN (13:33)
[2024-12-18] MEDS: CEFUROXIME 1MG/0.1ML INTRACAMERAL INJ As Ordered ONE (13:46)
[2024-12-18] MEDS: LIDOCAINE 1% SDV 5ML VIAL As Ordered ONE (13:46)
[2024-12-18] MEDS: BSS IRRIG/VANCO(10MG)/TOBRA(5MG)/EPINEPH(1:1000-0.5CC)500ML BAG-ORONLY As Ordered ONE (13:46)
[2024-12-18] MEDS: VISCOAT 40-30MG/ML 0.5ML SYRINGE As Ordered ONE (13:48)
[2024-12-18] MEDS: ACETYLCHOLINE OPHTH SOLN 1% 2ML (MIOCHOL-E) As Ordered ONE (14:22)
[2024-12-18] MEDS: TOBRADEX OPHTH OINT 3.5 GM As Ordered ONE (14:22)
[2024-12-18 14:29] VITALS: BP 153/74; TEMP 97.6; O2SAT 95
== END 2024-12-18 14:49 | disposition home or self-care (01) ==
LOC: M SDC 11:57
PROVIDERS: ATTEND Ophthalmology
DX: E11.36 Type 2 diabetes mellitus with diabetic cataract (principal); H25.12 Age-related nuclear cataract, left eye; H57.03 Miosis; I10 Essential (primary) hypertension; J44.9 Chronic obstructive pulmonary disease, unspecified; N28.9 Disorder of kidney and ureter, unspecified; M10.9 Gout, unspecified; Z79.899 Other long term (current) drug therapy; Z79.84 Long term (current) use of oral hypoglycemic drugs; Z79.85 Long-term (current) use of injectable non-insulin antidiabetic drugs; Z87.891 Personal history of nicotine dependence; K21.9 Gastro-esophageal reflux disease without esophagitis; Z87.19 Personal history of other diseases of the digestive system
CPT/HCPCS: 66982; J0697; J2250; J3010; V2632